=== PATIENT | female | born 1955 | race Caucasian/White ===

== ENCOUNTER 2022-05-11 14:46 | Inpatient (IN) | payer MEDICARE, SELFPAY ==
--- NOTE | ~2022-05-11 | CT_ITS ---
EXAMINATION: CT ANGIOGRAM OF THE CHEST WITH AND WITHOUT CONTRAST (CT PULMONARY ANGIOGRAM FOR PE) CLINICAL INFORMATION: Reason for Exam Hypoxia. sob COMPARISON: None TECHNIQUE: Prior to contrast administration, noncontrast localization images were obtained. Subsequently, multidetector volumetric imaging was performed from the thoracic inlet to below the diaphragms following the administration of 65 mL Omnipaque 350 intravenous contrast. No contrast reaction reported Sagittal, coronal, and MIP oblique sagittal reformatted images were obtained on the CT workstation, uploaded to PACS, and reviewed. This CT examination was performed using dose optimization techniques as appropriate, variously including the following: *Automated exposure control *Adjustment of mA and/or kV according to patient size (this includes techniques or standardized protocols for targeted exams where dose is matched to indication/reason for exam; i.e. extremities or head) *Use of iterative reconstruction technique Total exam dose-length product 230 mGy-cm FINDINGS: QUALITY OF STUDY/CONTRAST BOLUS: Satisfactory. PULMONARY ARTERIES: No central or segmental pulmonary emboli. THORACIC AORTA: No aneurysm or dissection. LUNG: Mild centrilobular emphysema. Minimal subsegmental atelectasis in the lingula and medial right middle lobe. No airspace consolidation. Small sub-4 mm left lower lobe calcified granuloma. No suspicious appearing pulmonary nodules. Central airways are clear. Minimal scattered bronchial wall thickening and bronchial secretions bilaterally. No bronchiectasis. PLEURA: No pleural effusion or pneumothorax. MEDIASTINUM: Normal heart size. No pericardial effusion. Three-vessel coronary artery vascular calcifications present. No hilar or mediastinal lymphadenopathy. No evidence of septal bowing or right heart strain. CHEST WALL/AXILLA: No axillary or internal mammary lymphadenopathy. OSSEOUS STRUCTURES: No acute or suspicious osseous abnormality. Mild multilevel thoracic spondylosis and facet arthrosis. UPPER ABDOMEN: Unremarkable. No reflux of contrast into the hepatic veins to suggest elevated right heart pressures. CT/CT angio chest PE protocol IMPRESSION: 1. No evidence of pulmonary embolus. 2. No airspace consolidation or effusions. 3. Mild centrilobular emphysema and mild diffuse bronchial wall thickening and scattered endobronchial secretions consistent with bronchitis. VTE: negative
--- NOTE | ~2022-05-11 | XR_ITS ---
EXAMINATION: XR CHEST CLINICAL INFORMATION: Shortness of breath COMPARISON: None TECHNIQUE: Frontal view of the chest was obtained. FINDINGS: The cardiac and mediastinal contours are normal. There is question of bronchial wall thickening at the right lung base. The lungs are otherwise clear. No pleural effusion or pneumothorax. Normal bony structures. XR/XR chest 1V IMPRESSION: Question bronchial wall thickening of the right lung base.
[2022-05-11 14:57] VITALS: BP 173/112; BP 201/113; PULSE 89; PULSE 92; RESP 21; TEMP 36.6; O2SAT 96; BMI 27.3
--- NOTE | 2022-05-11 15:04 | ED.SOB ---
HPI - SOB/Dyspnea General Chief Complaint: Dyspnea <NISHA Elias - Last Filed: 05/11/22 18:40> Stated Complaint: SOB worse x1week from urgent care per EMS <NISHA Elias - Last Filed: 05/11/22 18:40> Time Seen by Provider: 05/11/22 15:03 <NISHA Elias - Last Filed: 05/11/22 18:40> Source: patient and EMS <NISHA Elias - Last Filed: 05/11/22 18:40> Mode of arrival: EMS <NISHA Elias Last Filed: 05/11/22 18:40> History of Present Illness HPI Narrative: 67-year-old female with a past medical history of asthma, COPD, hypertension, presenting to the ED via EMS from [facility] c/o SOB x1 week with productive cough. Noted hypoxia 77% on RA [employer], improved to 96% on 4 L NC. Was given 125 mg of Solu-Medrol by EMS. Has been using inhalers at home without relief. Denies fever, chills, chest pain, pedal edema, calf pain, recent travel, sick contacts. <NISHA Elias - Last Filed: 05/11/22 18:40> MD elicited complaint: shortness of breath and cough <NISHA Elias - Last Filed: 05/11/22 18:40> Pertinent past history: COPD and asthma <NISHA Elias - Last Filed: 05/11/22 18:40> Onset (ago): day(s) <NISHA Elias Last Filed: 05/11/22 18:40> Related Data Allergies/Adverse Reactions: Allergies Allergy/AdvReac Type Severity Reaction Status Date / Time No Known Allergies Allergy Verified 05/11/22 15:11 <NISHA Elias - Last Filed: 05/11/22 18:40> Review of Systems Review of Systems: Constitutional: No Fever, No Chills, No Fatigue, No Malaise ENT/Mouth: No Ear Pain, No Nasal Congestion, No Sinus Pain, No Hoarseness, No sore throat, No Rhinorrhea, No Swallowing Difficulty Eyes: No Eye Pain, No Swelling, No Redness, No Vision Changes Cardiovascular: No Chest Pain, + SOB, + Dyspnea on Exertion, No Orthopnea, No Edema, No Palpitations Respiratory: + Cough, + Sputum, + Wheezing, No Dyspnea Gastrointestinal: No Nausea, No Vomiting, No Diarrhea, No Constipation, No Abdominal pain Genitourinary: No Dysuria, No Urinary Frequency, No Hematuria, No Flank Pain Musculoskeletal: No joint pain, No Myalgias, No Joint Swelling Skin: No Skin Lesions, No rash Neuro: No Weakness, No Loss of Consciousness, No Dizziness, No Headache <NISHA Elias - Last Filed: 05/11/22 18:40> Yes all other systems are reviewed and are negative <NISHA Elias - Last Filed: 05/11/22 18:40> Constitutional: Constitutional: Reports as per HPI <NISHA Elias - Last Filed: 05/11/22 18:40> [facility] Past Medical History Attestation statement: The following information was validated with the patient. <NISHA Elias - Last Filed: 05/11/22 18:40> Social History Social History: Social History Advance Directives: No Advance Directives Information Provided: No <NISHA Elias Last Filed: 05/11/22 18:40> Physical Exam Vital Signs: Vital Signs: Last Vital Signs Temp 97.9 F 05/11/22 14:57 Pulse 100 05/11/22 18:48 Resp 18 05/11/22 18:48 BP 173/112 H 05/11/22 14:57 Pulse Ox 96 05/11/22 14:57 O2 Del Method 05/11/22 14:57 Oxygen Flow Rate 4 05/11/22 14:57 BMI result Body Mass Index 27.3 <NISHA Elias - Last Filed: 05/11/22 18:40> Vital Signs: Last Vital Signs Temp 97.9 F 05/11/22 14:57 Pulse 100 05/11/22 18:48 Resp 18 05/11/22 18:48 BP 173/112 H 05/11/22 14:57 Pulse Ox 96 05/11/22 14:57 O2 Del Method 05/11/22 14:57 Oxygen Flow Rate 4 05/11/22 14:57 BMI result Body Mass Index 27.3 <Leda Alexandre MI - Last Filed: 05/11/22 19:36> Const: General: cooperative, healthy appearing and no acute distress <Janis Dawson MI - Last Filed: 05/11/22 18:40> Orientation/consciousness: patient oriented x3 <Janis Dawson MI - Last Filed: 05/11/22 18:40> Limitations: no limitations <NISHA Elias Last Filed: 05/11/22 18:40> HEENT: Head: Yes normal to inspection and Yes atraumatic <NISHA Elias - Last Filed: 05/11/22 18:40> Ears: hearing grossly normal bilaterally <Janis Dawson MI - Last Filed: 05/11/22 18:40> General nose exam: Normal external nose present <NISHA Elias - Last Filed: 05/11/22 18:40> Face and sinus: Yes normal facial exam <NISHA Elias - Last Filed: 05/11/22 18:40> Eyes: General: appearance normal, both eyes and all related structures <NISHA Elias - Last Filed: 05/11/22 18:40> EOM: EOMs intact bilaterally <Janis Dawson MI - Last Filed: 05/11/22 18:40> Neck: Neck: Yes normal visual inspection and Yes no meningeal signs <NISHA Elias - Last Filed: 05/11/22 18:40> Resp: Effort & Inspection: normal respiratory effort and no respiratory distress <NISHA Elias Last Filed: 05/11/22 18:40> Auscultation: clear to auscultation bilaterally and wheezes expiratory wheezes, inspiratory wheezes and throughout <NISHA Elias - Last Filed: 05/11/22 18:40> Cardio: Rate: regular rate <NISHA Elias - Last Filed: 05/11/22 18:40> Heart sounds: S1 normal heart sound present and S2 normal heart sound present <NISHA Elias - Last Filed: 05/11/22 18:40> GI: Inspection: Yes normal to inspection <NISHA Elias Last Filed: 05/11/22 18:40> Palpation (GI): Soft to palpation, nontender, no guarding and not rigid <NISHA Elias Last Filed: 05/11/22 18:40> Skin: Rashes: no rashes <NISHA Elias Last Filed: 05/11/22 18:40> Wounds: no wounds <NISHA Elias Last Filed: 05/11/22 18:40> Neuro: General: patient oriented x3, tone normal and no meningeal signs <NISHA Elias Last Filed: 05/11/22 18:40> Gait exam (Neuro): Normal gait present <NISHA Elias Last Filed: 05/11/22 18:40> Extrem: General: Yes normal to inspection, Yes no pedal edema and Yes no calf tenderness <NISHA Elias Last Filed: 05/11/22 18:40> Course Course Course Narrative: -patient desatting into the 80s on room air > will obtain CTA to rule out PE XR chest 1V IMPRESSION: Question bronchial wall thickening of the right lung base. ? -no leukocytosis. Troponin negative. BNP wnl -patient on OxyMask satting 92%. COVID-19/influenza/RSV negative -1835--ED care transfer to [facility] pending CTA and admission <NISHA Elias Last Filed: 05/11/22 18:40> Reevaluation(s) Reevaluation #1: CTA with no signs of PE. Will be admitted to the hospital for further intervention and treatment. <NISHA Hawk Last Filed: 05/11/22 19:36> Time: 19:36 <NISHA Hawk Last Filed: 05/11/22 19:36> Medications Administered Discontinued Medications Generic Name Dose Route Start Last Admin Trade Name Freq PRN Reason Stop Dose Admin Albuterol Sulfate 5 mg 05/11/22 15:11 05/11/22 15:21 Albuterol Sulfate 2.5 Mg/0.5 Ml Vial.Neb INHALE 05/11/22 15:12 5 mg ONCE ONE Administration Albuterol Sulfate 5 mg/ 7.5 mg 05/11/22 15:51 05/11/22 15:58 Albuterol Sulfate 2.5 mg INHALE 05/11/22 15:52 7.5 mg ONCE ONE Administration Albuterol Sulfate 7.5 mg/ 10 mg 05/11/22 18:32 05/11/22 18:44 Albuterol Sulfate 2.5 mg INHALE 05/11/22 18:33 10 mg ONCE ONE Administration Albuterol/Ipratropium 3 ml 05/11/22 15:11 05/11/22 15:21 Albuterol/Iprat 2.5/0.5mg 3 Ml Ampul.Neb INHALE 05/11/22 15:12 3 ml ONCE ONE Administration Albuterol/Ipratropium 3 ml 05/11/22 15:51 05/11/22 15:57 Albuterol/Iprat 2.5/0.5mg 3 Ml Ampul.Neb INHALE 05/11/22 15:52 3 ml ONCE ONE Administration Benzonatate 100 mg 05/11/22 15:37 05/11/22 16:40 Benzonatate 100 Mg Capsule PO 05/11/22 15:38 100 mg ONCE ONE Administration Hydrocodone Bit/Homatropine Methylb 5 ml 05/11/22 15:37 05/11/22 16:40 Hydrocodone/Homat 5/1.5/5 Ml 5 Ml Syrup PO 05/11/22 15:38 5 ml ONCE ONE Administration Magnesium Sulfate 2 gm in 50 mls @ 25 mls/hr 05/11/22 15:11 05/11/22 19:34 Magnesium Sulfate/H2o IV 05/11/22 17:10 Infused ONCE ONE Infusion Iohexol 65 ml 05/11/22 17:49 05/11/22 17:49 Iohexol 350 Mg/Ml 100 Ml Infus..Btl IV 05/11/22 17:50 65 ml ONCE ONE Administration <NISHA Elias - Last Filed: 05/11/22 18:40> Medications Administered Discontinued Medications Generic Name Dose Route Start Last Admin Trade Name Freq PRN Reason Stop Dose Admin Albuterol Sulfate 5 mg 05/11/22 15:11 05/11/22 15:21 Albuterol Sulfate 2.5 Mg/0.5 Ml Vial.Neb INHALE 05/11/22 15:12 5 mg ONCE ONE Administration Albuterol Sulfate 5 mg/ 7.5 mg 05/11/22 15:51 05/11/22 15:58 Albuterol Sulfate 2.5 mg INHALE 05/11/22 15:52 7.5 mg ONCE ONE Administration Albuterol Sulfate 7.5 mg/ 10 mg 05/11/22 18:32 05/11/22 18:44 Albuterol Sulfate 2.5 mg INHALE 05/11/22 18:33 10 mg ONCE ONE Administration Albuterol/Ipratropium 3 ml 05/11/22 15:11 05/11/22 15:21 Albuterol/Iprat 2.5/0.5mg 3 Ml Ampul.Neb INHALE 05/11/22 15:12 3 ml ONCE ONE Administration Albuterol/Ipratropium 3 ml 05/11/22 15:51 05/11/22 15:57 Albuterol/Iprat 2.5/0.5mg 3 Ml Ampul.Neb INHALE 05/11/22 15:52 3 ml ONCE ONE Administration Benzonatate 100 mg 05/11/22 15:37 05/11/22 16:40 Benzonatate 100 Mg Capsule PO 05/11/22 15:38 100 mg ONCE ONE Administration Hydrocodone Bit/Homatropine Methylb 5 ml 05/11/22 15:37 05/11/22 16:40 Hydrocodone/Homat 5/1.5/5 Ml 5 Ml Syrup PO 05/11/22 15:38 5 ml ONCE ONE Administration Magnesium Sulfate 2 gm in 50 mls @ 25 mls/hr 05/11/22 15:11 05/11/22 19:34 Magnesium Sulfate/H2o IV 05/11/22 17:10 Infused ONCE ONE Infusion Iohexol 65 ml 05/11/22 17:49 05/11/22 17:49 Iohexol 350 Mg/Ml 100 Ml Infus..Btl IV 05/11/22 17:50 65 ml ONCE ONE Administration <NISHA Hawk - Last Filed: 05/11/22 19:36> Medical Decision Making Medical Decision Making MDM Narrative: 67-year-old female with a past medical history of asthma, COPD, hypertension, presenting to the ED via EMS from [facility] c/o SOB x1 week with productive cough. Noted hypoxia at Urgent Care [employer], was given 125 mg of Solu-Medrol by EMS. On exam hypertensive, hypoxic to 90% on RA, improved to 96% on 4 L NC, diffuse inspiratory and expiratory wheezes noted, no facial pedal edema. Course cough noted. Concern for asthma/COPD exacerbation vs viral syndrome vs pneumonia. Lower suspicion for PE/DVT or CHF Plan: Labs, CXR, COVID-19/influenza/RSV testing, IV magnesium, DuoNebs, re-evaluate, admission <NISHA Elias - Last Filed: 05/11/22 18:40> Differential Diagnosis Differential Diagnoses: The differential diagnosis associated with the presentation includes <NISHA Elias - Last Filed: 05/11/22 18:40> as above <NISHA Elias - Last Filed: 05/11/22 18:40> Admission/Observation Consideration of admission/observation: Escalation of care including admission/observation considered <NISHA Elias - Last Filed: 05/11/22 18:40> Consult Healthcare Provider Management of the patient was discussed with: Hospitalist <NISHA Elias - Last Filed: 05/11/22 18:40> Lab Data MDM Lab Attestation statement: I reviewed the patient's lab results. <NISHA Elias - Last Filed: 05/11/22 18:40> Result Diagrams: : 05/11/22 16:36 05/11/22 16:36 <NISHA Elias - Last Filed: 05/11/22 18:40> Labs: Lab Results 05/11/22 05/11/22 05/11/22 Range/Units 16:36 16:36 16:36 WBC 7.0 (4.8-10.8) X10*3/uL RBC 4.12 L (4.20-5.50) X10*6/uL Hgb 13.8 (12.0-16.0) g/dl Hct 41.0 (37.0-47.0) % MCV 99.5 H (80.0-98.0) fL MCH 33.5 H (27.0-33.0) pg MCHC 33.7 (31.0-35.0) g/dl RDW 13.9 (11.0-16.0) % Plt Count 191 (160-400) X10*3/uL MPV 9.3 L (9.4-12.3) fL Immature Gran % (Auto) 0.3 (0.0-0.4) % Neut % (Auto) 81.8 H (45-73) % Lymph % (Auto) 11.2 L (20-40) % [place] % (Auto) 2.0 (2-11) % Eos % (Auto) 3.1 (0-4) % Baso % (Auto) 1.6 (0-2) % Lymph # (Auto) 0.8 L (1.2-4.9) X10*3/uL [place] # (Auto) 0.1 (0.1-1.2) X10*3/uL Eos # (Auto) 0.2 (0.0-0.4) X10*3/uL Baso # (Auto) 0.1 (0.0-0.2) X10*3/uL Abs Immat Gran (auto) 0.02 (0.00-0.03) X10*3/uL Absolute Neuts (auto) 5.8 (2.0-8.3) x10*3/uL Absolute Nucleated RBC 0.000 (0.0-0.012) X10*3/uL Nucleated RBC % (auto) 0.0 (0.0-0.2) /100WBC Sodium 132 L (135-145) mmol/L Potassium 4.8 (3.3-5.1) mmol/L Chloride 94 L (96-108) mmol/L Carbon Dioxide 28 (22-29) mmol/L Anion Gap 15 (12-20) BUN 8 L (9-16) mg/dL Creatinine 0.77 (0.5-1.4) mg/dL Estim Creat Clear Calc 60.7 Estimated GFR > 60 Random Glucose 122 H (60-115) mg/dL Calcium 10.1 (8.4-10.2) mg/dL Magnesium 1.7 (1.6-2.6) mg/dL Total Bilirubin 1.0 (0.0-1.0) mg/dL Direct Bilirubin 0.3 (0.0-0.5) mg/dL AST 23 (5-31) U/L ALT 24 (0-31) U/L Alkaline Phosphatase 123 H (39-117) U/L Troponin I High Sens (<3.5-17.0) ng/L B-Natriuretic Peptide (<100) pg/mL Total Protein 7.4 (6.5-8.0) g/dL Albumin 4.5 (3.5-5.0) g/dL Influenza Type A (PCR) NEGATIVE (Negative) Influenza Type B (PCR) NEGATIVE (Negative) RSV RNA Qual (PCR) NEGATIVE (Negative) SARS-CoV-2 RNA (RT-PCR) NEGATIVE (Negative) 05/11/22 05/11/22 Range/Units 16:37 16:37 WBC (4.8-10.8) X10*3/uL RBC (4.20-5.50) X10*6/uL Hgb (12.0-16.0) g/dl Hct (37.0-47.0) % MCV (80.0-98.0) fL MCH (27.0-33.0) pg MCHC (31.0-35.0) g/dl RDW (11.0-16.0) % Plt Count (160-400) X10*3/uL MPV (9.4-12.3) fL Immature Gran % (Auto) (0.0-0.4) % Neut % (Auto) (45-73) % Lymph % (Auto) (20-40) % [place] % (Auto) (2-11) % Eos % (Auto) (0-4) % Baso % (Auto) (0-2) % Lymph # (Auto) (1.2-4.9) X10*3/uL [place] # (Auto) (0.1-1.2) X10*3/uL Eos # (Auto) (0.0-0.4) X10*3/uL Baso # (Auto) (0.0-0.2) X10*3/uL Abs Immat Gran (auto) (0.00-0.03) X10*3/uL Absolute Neuts (auto) (2.0-8.3) x10*3/uL Absolute Nucleated RBC (0.0-0.012) X10*3/uL Nucleated RBC % (auto) (0.0-0.2) /100WBC Sodium (135-145) mmol/L Potassium (3.3-5.1) mmol/L Chloride (96-108) mmol/L Carbon Dioxide (22-29) mmol/L Anion Gap (12-20) BUN (9-16) mg/dL Creatinine (0.5-1.4) mg/dL Estim Creat Clear Calc Estimated GFR Random Glucose (60-115) mg/dL Calcium (8.4-10.2) mg/dL Magnesium (1.6-2.6) mg/dL Total Bilirubin (0.0-1.0) mg/dL Direct Bilirubin (0.0-0.5) mg/dL AST (5-31) U/L ALT (0-31) U/L Alkaline Phosphatase (39-117) U/L Troponin I High Sens < 3.5 (<3.5-17.0) ng/L B-Natriuretic Peptide 87 (<100) pg/mL Total Protein (6.5-8.0) g/dL Albumin (3.5-5.0) g/dL Influenza Type A (PCR) (Negative) Influenza Type B (PCR) (Negative) RSV RNA Qual (PCR) (Negative) SARS-CoV-2 RNA (RT-PCR) (Negative) <NISHA Elias - Last Filed: 05/11/22 18:40> Lab Results 05/11/22 05/11/22 05/11/22 Range/Units 16:36 16:36 16:36 WBC 7.0 (4.8-10.8) X10*3/uL RBC 4.12 L (4.20-5.50) X10*6/uL Hgb 13.8 (12.0-16.0) g/dl Hct 41.0 (37.0-47.0) % MCV 99.5 H (80.0-98.0) fL MCH 33.5 H (27.0-33.0) pg MCHC 33.7 (31.0-35.0) g/dl RDW 13.9 (11.0-16.0) % Plt Count 191 (160-400) X10*3/uL MPV 9.3 L (9.4-12.3) fL Immature Gran % (Auto) 0.3 (0.0-0.4) % Neut % (Auto) 81.8 H (45-73) % Lymph % (Auto) 11.2 L (20-40) % [place] % (Auto) 2.0 (2-11) % Eos % (Auto) 3.1 (0-4) % Baso % (Auto) 1.6 (0-2) % Lymph # (Auto) 0.8 L (1.2-4.9) X10*3/uL [place] # (Auto) 0.1 (0.1-1.2) X10*3/uL Eos # (Auto) 0.2 (0.0-0.4) X10*3/uL Baso # (Auto) 0.1 (0.0-0.2) X10*3/uL Abs Immat Gran (auto) 0.02 (0.00-0.03) X10*3/uL Absolute Neuts (auto) 5.8 (2.0-8.3) x10*3/uL Absolute Nucleated RBC 0.000 (0.0-0.012) X10*3/uL Nucleated RBC % (auto) 0.0 (0.0-0.2) /100WBC Sodium 132 L (135-145) mmol/L Potassium 4.8 (3.3-5.1) mmol/L Chloride 94 L (96-108) mmol/L Carbon Dioxide 28 (22-29) mmol/L Anion Gap 15 (12-20) BUN 8 L (9-16) mg/dL Creatinine 0.77 (0.5-1.4) mg/dL Estim Creat Clear Calc 60.7 Estimated GFR > 60 Random Glucose 122 H (60-115) mg/dL Calcium 10.1 (8.4-10.2) mg/dL Magnesium 1.7 (1.6-2.6) mg/dL Total Bilirubin 1.0 (0.0-1.0) mg/dL Direct Bilirubin 0.3 (0.0-0.5) mg/dL AST 23 (5-31) U/L ALT 24 (0-31) U/L Alkaline Phosphatase 123 H (39-117) U/L Troponin I High Sens (<3.5-17.0) ng/L B-Natriuretic Peptide (<100) pg/mL Total Protein 7.4 (6.5-8.0) g/dL Albumin 4.5 (3.5-5.0) g/dL Influenza Type A (PCR) NEGATIVE (Negative) Influenza Type B (PCR) NEGATIVE (Negative) RSV RNA Qual (PCR) NEGATIVE (Negative) SARS-CoV-2 RNA (RT-PCR) NEGATIVE (Negative) 05/11/22 05/11/22 Range/Units 16:37 16:37 WBC (4.8-10.8) X10*3/uL RBC (4.20-5.50) X10*6/uL Hgb (12.0-16.0) g/dl Hct (37.0-47.0) % MCV (80.0-98.0) fL MCH (27.0-33.0) pg MCHC (31.0-35.0) g/dl RDW (11.0-16.0) % Plt Count (160-400) X10*3/uL MPV (9.4-12.3) fL Immature Gran % (Auto) (0.0-0.4) % Neut % (Auto) (45-73) % Lymph % (Auto) (20-40) % [place] % (Auto) (2-11) % Eos % (Auto) (0-4) % Baso % (Auto) (0-2) % Lymph # (Auto) (1.2-4.9) X10*3/uL [place] # (Auto) (0.1-1.2) X10*3/uL Eos # (Auto) (0.0-0.4) X10*3/uL Baso # (Auto) (0.0-0.2) X10*3/uL Abs Immat Gran (auto) (0.00-0.03) X10*3/uL Absolute Neuts (auto) (2.0-8.3) x10*3/uL Absolute Nucleated RBC (0.0-0.012) X10*3/uL Nucleated RBC % (auto) (0.0-0.2) /100WBC Sodium (135-145) mmol/L Potassium (3.3-5.1) mmol/L Chloride (96-108) mmol/L Carbon Dioxide (22-29) mmol/L Anion Gap (12-20) BUN (9-16) mg/dL Creatinine (0.5-1.4) mg/dL Estim Creat Clear Calc Estimated GFR Random Glucose (60-115) mg/dL Calcium (8.4-10.2) mg/dL Magnesium (1.6-2.6) mg/dL Total Bilirubin (0.0-1.0) mg/dL Direct Bilirubin (0.0-0.5) mg/dL AST (5-31) U/L ALT (0-31) U/L Alkaline Phosphatase (39-117) U/L Troponin I High Sens < 3.5 (<3.5-17.0) ng/L B-Natriuretic Peptide 87 (<100) pg/mL Total Protein (6.5-8.0) g/dL Albumin (3.5-5.0) g/dL Influenza Type A (PCR) (Negative) Influenza Type B (PCR) (Negative) RSV RNA Qual (PCR) (Negative) SARS-CoV-2 RNA (RT-PCR) (Negative) <NISHA Hawk - Last Filed: 05/11/22 19:36> Independent Interpretation I performed an independent interpretation of an: EKG <NISHA Elias - Last Filed: 05/11/22 18:40> Interpretation: My interpretation EKG normal sinus rhythm at a rate of 91. QRS 78. QTC 462. No STEMI. <NISHA Elias Last Filed: 05/11/22 18:40> Radiology Impression Discussion of test interpretation with radiology: I have reviewed the radiologist's reading. <NISHA Elias Last Filed: 05/11/22 18:40> Critical Care Time Critical Care Time Critical Care Time: Yes <NISHA Elias Last Filed: 05/11/22 18:40> Total Critical Care Time: 45 <NISHA Elias Last Filed: 05/11/22 18:40> Attestation: I have personally provided critical care time exclusive of time spent on separately billable procedures. Time includes review of lab data, radiology results, discussion with consultants, and monitoring for potential decompensation. Intervention performed as documented. <NISHA Elias - Last Filed: 05/11/22 18:40> Discharge Plan Discharge Clinical Impression: Asthma with exacerbation, Acute exacerbation of chronic obstructive airways disease <NISHA Elias - Last Filed: 05/11/22 18:40> Patient Disposition: Admitted As Inpatient <NISHA Elias - Last Filed: 05/11/22 18:40>
--- NOTE | 2022-05-11 15:11 | ECG_ITS ---
Test Reason : SOB Blood Pressure : / mmHG Vent. Rate : 091 BPM Atrial Rate : 091 BPM P-R Int : 138 ms QRS Dur : 078 ms QT Int : 376 ms P-R-T Axes : 060 063 057 degrees QTc Int : 462 ms Normal sinus rhythm Normal ECG No previous ECGs available Referred By: Janis Dawson Electronically Signed By:ANTONIETA PINA MD
[2022-05-11] MEDS: Albuterol Sulfate 2.5 MG/0.5 ML VIAL.NEB 5 MG INHALE (15:21)
[2022-05-11] MEDS: Albuterol/Iprat 2.5/0.5MG 3 ML AMPUL.NEB INHALE ×2 (15:21→15:57)
[2022-05-11 15:22] VITALS: PULSE 91; RESP 20; O2SAT 87
[2022-05-11] MEDS: Albuterol Sulfate 5 MG, Albuterol Sulfate (0.083%) 2.5 MG 7.5 MG INHALE (15:58)
[2022-05-11 15:59] VITALS: PULSE 87; RESP 20; O2SAT 93
[2022-05-11] MEDS: Magnesium Sulfate/H2O 2 GM/50 ML PIGGYBACK IV (16:40)
[2022-05-11] MEDS: HYDROcodone/Homat 5/1.5/5 ML 5 ML SYRUP PO (16:40)
[2022-05-11] MEDS: Benzonatate 100 MG CAPSULE PO (16:40)
[2022-05-11 16:43] LABS: MANUAL DIFF FLAG NO
[2022-05-11 16:44] LABS: Lymphocytes Absolute Auto 0.8 X10*3/uL (1.2-4.9); Mean Corpuscular HGB Conc 33.7 g/dl (31.0-35.0); PLT CLUMP 1; SCAN SMEAR FLAG 1
[2022-05-11 16:46] LABS: Basophils Absolute Auto 0.1 X10*3/uL (0.0-0.2); Basophils Percent Auto 1.6 % (0-2); Eosinophils Absolute Auto 0.2 X10*3/uL (0.0-0.4); Eosinophils Percent Auto 3.1 % (0-4); Hemoglobin 13.8 g/dl (12.0-16.0); Imm Gran Abs Auto 0.02 X10*3/uL (0.00-0.03); Imm Gran Pct Auto 0.3 % (0.0-0.4); Lymphocytes Percent Auto 11.2 % (20-40); Mean Corpuscular Hemoglobin 33.5 pg (27.0-33.0); Mean Corpuscular Volume 99.5 fL (80.0-98.0); Mean Platelet Volume 9.3 fL (9.4-12.3); Monocytes Absolute Auto 0.1 X10*3/uL (0.1-1.2); Neutrophils Absolute Auto 5.8 x10*3/uL (2.0-8.3); Neutrophils Percent Auto 81.8 % (45-73); Red Blood Count 4.12 X10*6/uL (4.20-5.50); Red Cell Distribution Width 13.9 % (11.0-16.0)
[2022-05-11 16:49] LABS: Platelet Count 191 X10*3/uL (160-400)
[2022-05-11 17:05] LABS: Alanine Aminotransferase 24 U/L (0-31); Albumin Level 4.5 g/dL (3.5-5.0); Alkaline Phosphatase 123 U/L (39-117); Anion Gap 15 (12-20); Aspartate Amino Transferase 23 U/L (5-31); Bilirubin Direct 0.3 mg/dL (0.0-0.5); Blood Urea Nitrogen 8 mg/dL (9-16); Calcium 10.1 mg/dL (8.4-10.2); Carbon Dioxide 28 mmol/L (22-29); Chloride 94 mmol/L (96-108); Creatinine Clr Calc Pharmacy 60.7; Estimated Glomerular Filt Rate > 60; Glucose Random 122 mg/dL (60-115); Magnesium 1.7 mg/dL (1.6-2.6); Potassium 4.8 mmol/L (3.3-5.1); Sodium 132 mmol/L (135-145); Total Protein 7.4 g/dL (6.5-8.0)
[2022-05-11 17:09] LABS: B Type Natriuretic Peptide 87 pg/mL (<100)
[2022-05-11 17:11] LABS: Troponin-I High Sensitivity < 3.5 ng/L (<3.5-17.0)
[2022-05-11 17:22] LABS: Influenza A PCR NEGATIVE (Negative); Influenza B PCR NEGATIVE (Negative); Resp Syncy Virus RNA Qual PCR NEGATIVE (Negative); SARS COV2 PCR INHOUSE NEGATIVE (Negative)
[2022-05-11] MEDS: iohexoL 350 MG/ML 100 ML INFUS..BTL 65 ML IV (17:49)
[2022-05-11] MEDS: Albuterol Sulfate 7.5 MG, Albuterol Sulfate (0.083%) 2.5 MG 10 MG INHALE (18:44)
[2022-05-11 18:48] VITALS: PULSE 100; RESP 18; O2SAT 93
--- NOTE | 2022-05-11 19:52 | PC.NURSE ---
Resumed car of the pt at 1900. Pt is A&Ox4, GCS 15, resting comfortably in bed. She was having occasional episodes of coughing. Pt requested food, she was given a sandwich and a glass of water. Hospitalist is at the bedside at this time.
[2022-05-11 20:03] VITALS: BP 151/79; PULSE 107; RESP 20; O2SAT 94
[2022-05-11] MEDS: Azithromycin 500 MG TABLET PO (21:50)
[2022-05-11] MEDS: Enoxaparin Sodium 40 MG/0.4 ML SYRINGE SUBCUT (21:51)
[2022-05-11] MEDS: methylPREDNISolone Sod Succ 40 MG/ML VIAL IVPUSH (21:51)
[2022-05-11 22:26] VITALS: BP 156/61; PULSE 97; RESP 21; TEMP 36.6; O2SAT 96
[2022-05-11] MEDS: Losartan Potassium 50 MG TABLET 100 MG PO (22:40)
--- NOTE | 2022-05-11 23:04 | MHC.CM.PN ---
IMM 05/11. Lives w . Independent. Employed. Drives. Prizer x2. No booster. No services/DME. HCP reviewed, completed and signed. Copies given and uploaded into [facility] and [facility] [employer]. HCP/daughter Kenzie Marrero ([phone]). Pt has standard medicare. Has new insurance starting May 15-[facility] Medicare Advantage. PCP Graeme Kathleen. D/C plan: Home without services. Pt to arrange transport. CM to follow for discharge needs.
--- NOTE | 2022-05-11 23:19 | P.HPHOSP_ITS ---
History of Present Illness Date of Service: 05/11/22 Chief Complaint: SOB 67-year-old female with past medical history of asthma COPD overlap syndrome, hypertension, presented to the ED with complaints of shortness of breath, wheezing, cough, and increased sputum production for the past 1 week. Patient presented to [facility] is compressed found to be 76% on room air, patient placed on oxygen with improvement of her symptoms. Patient reports that she has had recurrent COPD exacerbations since December, reports no chest pain, no palpitations, no abdominal pain nausea or vomiting, no diarrhea constipation, no urinary symptoms and no lower extremity edema. on arrival to the ED patient hemodynamically stable with a respiratory rate of 22, satting 96% on 4 L of oxygen. Labs are significant for sodium of 132, BNP of 87, troponin less than 3.5, viral serology negative Chest CT angiogram shows no PE, no airspace consolidation or effusion. Mild emphysema and diffuse bronchial wall thickening and scattered and a brachial secretion consistent with bronchitis Review of Systems Review of Systems: Yes all other systems are reviewed and are negative [facility] Medical History Asthma-COPD overlap syndrome Hypertension Family History Other No family history of coronary artery disease Surgical History No pertinent past surgical history Social History Household Members: Spouse Housing: Other Housing Other:: housing Do you presently have visiting nurse or other home services: No Patient Tobacco Use Status: Current someday Tobacco user Tobacco use type: Cigarette Cigarettes Per Day: 10 Smoked in Last 30 Days: Yes Patient Interested in Nicotine Replacement: No Patient Given Instructions on How to Stop Smoking: No Second Hand Smoke Exposure: No Use of substances other than those prescribed or required for medical reasons: No Have you been hit, kicked, punched, or otherwise hurt by someone within the past year? If so, by whom?: No Do you feel safe in your current relationship?: Yes Is there a partner from a previous relationship who is making you feel unsafe now?: No Are you made to feel afraid or neglected: No Advance Directives: No Advance Directives Information Provided: No Do you have thoughts of harming others: None Do you have a plan to hurt others: No Plan Recently lost weight without trying: No How much weight loss: Not applicable Eating poorly because of decreased appetite: No Nutrition screen score: 0 Nutrition Risks: No Nutritional Risk Patient : No : No Poor oral hygiene: No service: No Current occupational status: employed Meds Allergies Allergy/AdvReac Type Severity Reaction Status Date / Time No Known Allergies Allergy Verified 05/11/22 15:11 Active Medications: Current Medications Acetaminophen (Acetaminophen 325 Mg Tablet) 650 mg PO Q6H PRN PRN Reason: Pain, Mild (Pain Scale 1-3) Albuterol/Ipratropium (Albuterol/Iprat 2.5/0.5mg 3 Ml Ampul.Neb) 3 ml INHALE RQ4H PRN PRN Reason: Shortness of Breath/Wheezing Albuterol/Ipratropium (Albuterol/Iprat 2.5/0.5mg 3 Ml Ampul.Neb) 3 ml INHALE RQ4H WHILE AWAKE [facility] Azithromycin (Azithromycin 500 Mg Tablet) 500 mg PO Q24H [facility] Last Admin: 05/11/22 21:50 Dose: 500 mg Docusate Sodium (Docusate Sodium 100 Mg Capsule) 100 mg PO DAILY PRN PRN Reason: Constipation Enoxaparin Sodium (Enoxaparin Sodium 40 Mg/0.4 Ml Syringe) 40 mg SUBCUT Q24H [facility] Last Admin: 05/11/22 21:51 Dose: 40 mg Losartan Potassium (Losartan Potassium 50 Mg Tablet) 100 mg PO BEDTIME [facility]; Protocol Last Admin: 05/11/22 22:40 Dose: 100 mg Methylprednisolone Sodium Succinate (Methylprednisolone Sod Succ 40 Mg/Ml Vial) 40 mg IVPUSH Q12H [facility] Last Admin: 05/11/22 21:51 Dose: 40 mg Ondansetron HCl (Ondansetron Hcl 4 Mg/2 Ml Vial) 4 mg IVPUSH Q8H PRN PRN Reason: Nausea and Vomiting Pharmacy Consult (Consult Rx Perform Med Rec) 1 each MISCELLANE ONCE PRN PRN Reason: Consult order Sodium Chloride (0.9 % Sodium Chloride Flush 3 Ml Syringe) 3 ml IVFLUSH QSHIFT [facility] Home Medications Medication Instructions Recorded Confirmed Last Taken Type albuterol sulfate 90 mcg/actuation 2 puff inhalation Q4H PRN dyspnea 05/11/22 05/11/22 05/11/22 History aerosol inhaler losartan 100 mg tablet 1 tab PO BEDTIME 05/11/22 05/11/22 05/10/22 History Physical Exam Vital Signs and Narrative: Vital Signs: Last Vital Signs Temp 98 F 05/11/22 22:26 Pulse 97 05/11/22 22:26 Resp 21 H 05/11/22 22:26 BP 156/61 H 05/11/22 22:26 Pulse Ox 96 05/11/22 22:26 O2 Del Method 05/11/22 22:26 Oxygen Flow Rate 4 05/11/22 14:57 BMI result Body Mass Index 27.3 Const: General: cooperative and no acute distress Orientation/consciousness: patient oriented x3 Eyes: General: appearance normal, both eyes and all related structures Pupils: Equal, round and reactive pupils present Resp: Other: audible wheezing diminished breath sounds Effort & Inspection: normal respiratory effort Cardio: Rate: regular rate Rhythm: regular rhythm GI: Palpation (GI): Soft to palpation Auscultation: normal bowel sounds Skin: General skin exam: no rashes or lesions noted Neuro: General: patient oriented x3 Cranial nerves: Yes Equal, round and reactive pupils present Cognition (Neuro): normal cognition Extrem: General: Yes normal to inspection and Yes no pedal edema Results Labs CBC and Chem 7: 05/11/22 16:36 05/11/22 16:36 Labs: Laboratory Results - last 24 hr 05/11/22 05/11/22 05/11/22 16:36 16:36 16:36 MCV 99.5 H MCH 33.5 H MCHC 33.7 RDW 13.9 Plt Count 191 MPV 9.3 L Immature Gran % (Auto) 0.3 Neut % (Auto) 81.8 H Lymph % (Auto) 11.2 L [place] % (Auto) 2.0 Eos % (Auto) 3.1 Baso % (Auto) 1.6 Lymph # (Auto) 0.8 L [place] # (Auto) 0.1 Eos # (Auto) 0.2 Baso # (Auto) 0.1 Abs Immat Gran (auto) 0.02 Absolute Neuts (auto) 5.8 Absolute Nucleated RBC 0.000 Nucleated RBC % (auto) 0.0 Anion Gap 15 Estim Creat Clear Calc 60.7 Estimated GFR > 60 Random Glucose 122 H Calcium 10.1 Magnesium 1.7 Total Bilirubin 1.0 Direct Bilirubin 0.3 AST 23 ALT 24 Alkaline Phosphatase 123 H Troponin I High Sens B-Natriuretic Peptide Total Protein 7.4 Albumin 4.5 Influenza Type A (PCR) NEGATIVE Influenza Type B (PCR) NEGATIVE RSV RNA Qual (PCR) NEGATIVE SARS-CoV-2 RNA (RT-PCR) NEGATIVE 05/11/22 05/11/22 16:37 16:37 MCV MCH MCHC RDW Plt Count MPV Immature Gran % (Auto) Neut % (Auto) Lymph % (Auto) [place] % (Auto) Eos % (Auto) Baso % (Auto) Lymph # (Auto) [place] # (Auto) Eos # (Auto) Baso # (Auto) Abs Immat Gran (auto) Absolute Neuts (auto) Absolute Nucleated RBC Nucleated RBC % (auto) Anion Gap Estim Creat Clear Calc Estimated GFR Random Glucose Calcium Magnesium Total Bilirubin Direct Bilirubin AST ALT Alkaline Phosphatase Troponin I High Sens < 3.5 B-Natriuretic Peptide 87 Total Protein Albumin Influenza Type A (PCR) Influenza Type B (PCR) RSV RNA Qual (PCR) SARS-CoV-2 RNA (RT-PCR) Imaging Radiologist's Impressions: Impressions Chest X-Ray 05/11/22 15:55 IMPRESSION: Question bronchial wall thickening of the right lung base. Chest CTA 05/11/22 17:57 IMPRESSION: 1. No evidence of pulmonary embolus. 2. No airspace consolidation or effusions. 3. Mild centrilobular emphysema and mild diffuse bronchial wall thickening and scattered endobronchial secretions consistent with bronchitis. VTE: negative Assessment and Plan (1) Asthma with COPD with exacerbation: Status: Acute (2) Acute respiratory failure with hypoxia: Status: Acute Plan 67-year-old female with past medical history of COPD asthma overlap syndrome, as well as hypertension presents to the hospital with complaints of shortness of breath found to be hypoxic # acute hypoxic respiratory failure - secondary to COPD exacerbation - viral serology negative - chest x-ray with no pneumonia, chest CT angiogram with no PE - treat with oxygen as required # acute COPD/asthma exacerbation - has cough, increased sputum, as well as increased dyspnea - will treat with DuoNeb, Solu-Medrol - given bronchitis, will add azithromycin - whole cultures # hypertension - elevated - continue home losartan DVT prophylaxis : Lovenox given oxygen requirement patient will require minimum 2 night inpatient hospital stay for further management and monitoring Time Spent With Patient Time: Total time managing care of this patient today ____ minutes. Quality Stroke Does the patient have a stroke diagnosis?: No VTE Prior VTE?: No VTE Risk Level:: Medical - moderate - high VTE Device Contraindication: Treatment Not Indicated VTE Drug Contraindication: N/A - Med Ordered
[2022-05-12] VITALS (9 sets, daily range): BP systolic 133–170; BP diastolic 60–98; PULSE 87–108; RESP 18–22; TEMP 36.6–37; O2SAT 93–96
[2022-05-12] MEDS: 0.9 % Sodium Chloride Flush 3 ML SYRINGE IVFLUSH ×4 (00:23→21:38)
[2022-05-12] MEDS: Benzonatate 100 MG CAPSULE PO (00:29)
[2022-05-12 06:06] LABS: MANUAL DIFF FLAG NO
[2022-05-12 06:37] LABS: Anion Gap 14 (12-20); Blood Urea Nitrogen 15 mg/dL (9-16); Calcium 9.9 mg/dL (8.4-10.2); Carbon Dioxide 26 mmol/L (22-29); Chloride 97 mmol/L (96-108); Creatinine Clr Calc Pharmacy 56.3; Estimated Glomerular Filt Rate > 60; Glucose Random 155 mg/dL (60-115); Potassium 5.3 mmol/L (3.3-5.1); Sodium 132 mmol/L (135-145)
[2022-05-12 06:40] LABS: Basophils Percent Auto 0.2 % (0-2); Eosinophils Percent Auto 0.2 % (0-4); Hematocrit 37.5 % (37.0-47.0); Hemoglobin 12.7 g/dl (12.0-16.0); Imm Gran Pct Auto 1.7 % (0.0-0.4); Lymphocytes Absolute Auto 0.5 X10*3/uL (1.2-4.9); Lymphocytes Percent Auto 8.9 % (20-40); Mean Corpuscular HGB Conc 33.9 g/dl (31.0-35.0); Mean Corpuscular Hemoglobin 33.2 pg (27.0-33.0); Mean Corpuscular Volume 97.9 fL (80.0-98.0); Mean Platelet Volume 9.8 fL (9.4-12.3); Monocytes Absolute Auto 0.1 X10*3/uL (0.1-1.2); Monocytes Percent Auto 1.5 % (2-11); Neutrophils Absolute Auto 5.2 x10*3/uL (2.0-8.3); Neutrophils Percent Auto 87.5 % (45-73); Platelet Count 195 X10*3/uL (160-400); Red Blood Count 3.83 X10*6/uL (4.20-5.50); Red Cell Distribution Width 13.8 % (11.0-16.0)
[2022-05-12] MEDS: Albuterol/Iprat 2.5/0.5MG 3 ML AMPUL.NEB INHALE ×4 (08:48→19:36)
[2022-05-12] MEDS: methylPREDNISolone Sod Succ 40 MG/ML VIAL IVPUSH ×2 (08:55→21:31)
--- NOTE | 2022-05-12 10:26 | HO.PM.IMPN ---
Subjective Subjective Date of Service: 05/12/22 Interval History: Complaining of persistent shortness of breath and cough, denies fever chills, tolerating diet no other acute issues overnight noted to have finger oximetry 76% on room air currently 4 L 96%, difficult to obtain finger of oximetry due to nail [place] Review of Systems General no headache no dizziness no fever chills. CVS no chest pain, no palpitation. Respiratory shortness of breath, cough Gastrointestinal no nausea, no vomiting, no abdominal pain Review of Systems: Yes all other systems are reviewed and are negative Physical Exam Vital Signs: Vital Signs: Last Vital Signs Temp 97.8 F 05/12/22 08:00 Pulse 106 H 05/12/22 08:51 Resp 20 05/12/22 08:51 BP 137/72 05/12/22 08:00 Pulse Ox 93 05/12/22 08:00 O2 Del Method 05/12/22 08:00 O2 Flow Rate 2 05/12/22 08:00 Oxygen Flow Rate 4 05/11/22 14:57 BMI result Body Mass Index 27.3 Const: Other: General awake alert x3, in no acute distress. Neck is supple no JVD. CVS regular rate rhythm, Respiratory lungs diminished breath sounds, bilateral rhonchi, no use of accessory muscle Gastrointestinal abdomen soft, nontender, bowel sounds audible, no guarding , no rigidity. Extremities no clubbing cyanosis or edema. Neuro nonfocal Skin no rash Psych appropriate affect Objective Data Active Medications Acetaminophen (Acetaminophen 325 Mg Tablet) 650 mg PO Q6H PRN PRN Reason: Pain, Mild (Pain Scale 1-3) Albuterol/Ipratropium (Albuterol/Iprat 2.5/0.5mg 3 Ml Ampul.Neb) 3 ml INHALE RQ4H PRN PRN Reason: Shortness of Breath/Wheezing Albuterol/Ipratropium (Albuterol/Iprat 2.5/0.5mg 3 Ml Ampul.Neb) 3 ml INHALE RQ4H WHILE AWAKE ON LICENSE OF [facility] Last Admin: 05/12/22 08:48 Dose: 3 ml Documented By: MACARIO Azithromycin (Azithromycin 500 Mg Tablet) 500 mg PO Q24H [facility] LICENSE OF [facility] Last Admin: 05/11/22 21:50 Dose: 500 mg Documented By: RAY Benzonatate (Benzonatate 100 Mg Capsule) 100 mg PO TID PRN PRN Reason: Cough Last Admin: 05/12/22 00:29 Dose: 100 mg Documented By: PETER Docusate Sodium (Docusate Sodium 100 Mg Capsule) 100 mg PO DAILY PRN PRN Reason: Constipation Enoxaparin Sodium (Enoxaparin Sodium 40 Mg/0.4 Ml Syringe) 40 mg SUBCUT Q24H [facility] Last Admin: 05/11/22 21:51 Dose: 40 mg Documented By: RAY Losartan Potassium (Losartan Potassium 50 Mg Tablet) 100 mg PO BEDTIME ON LICENSE OF [facility]; Protocol Last Admin: 05/11/22 22:40 Dose: 100 mg Documented By: RAY Methylprednisolone Sodium Succinate (Methylprednisolone Sod Succ 40 Mg/Ml Vial) 40 mg IVPUSH Q12H [facility] OF [facility] Last Admin: 05/12/22 08:55 Dose: 40 mg Documented By: ROB Ondansetron HCl (Ondansetron Hcl 4 Mg/2 Ml Vial) 4 mg IVPUSH Q8H PRN PRN Reason: Nausea and Vomiting Pharmacy Consult (Consult Rx Perform Med Rec) 1 each MISCELLANE ONCE PRN PRN Reason: Consult order Sodium Chloride (0.9 % Sodium Chloride Flush 3 Ml Syringe) 3 ml IVFLUSH QSHIFT ON LICENSE OF [facility] Last Admin: 05/12/22 07:09 Dose: 3 ml Documented By: ROB Labs CBC & Chem 7: 05/12/22 05:03 05/12/22 05:03 Labs: Laboratory Results - last 24 hr 05/11/22 05/11/22 05/11/22 16:36 16:36 16:36 MCV 99.5 H MCH 33.5 H MCHC 33.7 RDW 13.9 Plt Count 191 MPV 9.3 L Immature Gran % (Auto) 0.3 Neut % (Auto) 81.8 H Lymph % (Auto) 11.2 L [place] % (Auto) 2.0 Eos % (Auto) 3.1 Baso % (Auto) 1.6 Lymph # (Auto) 0.8 L [place] # (Auto) 0.1 Eos # (Auto) 0.2 Baso # (Auto) 0.1 Abs Immat Gran (auto) 0.02 Absolute Neuts (auto) 5.8 Absolute Nucleated RBC 0.000 Nucleated RBC % (auto) 0.0 Anion Gap 15 Estim Creat Clear Calc 60.7 Estimated GFR > 60 Random Glucose 122 H Calcium 10.1 Magnesium 1.7 Total Bilirubin 1.0 Direct Bilirubin 0.3 AST 23 ALT 24 Alkaline Phosphatase 123 H Troponin I High Sens B-Natriuretic Peptide Total Protein 7.4 Albumin 4.5 Influenza Type A (PCR) NEGATIVE Influenza Type B (PCR) NEGATIVE RSV RNA Qual (PCR) NEGATIVE SARS-CoV-2 RNA (RT-PCR) NEGATIVE 05/11/22 05/11/22 05/12/22 16:37 16:37 05:03 MCV 97.9 MCH 33.2 H MCHC 33.9 RDW 13.8 Plt Count 195 MPV 9.8 Immature Gran % (Auto) 1.7 H Neut % (Auto) 87.5 H Lymph % (Auto) 8.9 L [place] % (Auto) 1.5 L Eos % (Auto) 0.2 Baso % (Auto) 0.2 Lymph # (Auto) 0.5 L [place] # (Auto) 0.1 Eos # (Auto) 0.0 Baso # (Auto) 0.0 Abs Immat Gran (auto) 0.10 H Absolute Neuts (auto) 5.2 Absolute Nucleated RBC 0.000 Nucleated RBC % (auto) 0.0 Anion Gap Estim Creat Clear Calc Estimated GFR Random Glucose Calcium Magnesium Total Bilirubin Direct Bilirubin AST ALT Alkaline Phosphatase Troponin I High Sens < 3.5 B-Natriuretic Peptide 87 Total Protein Albumin Influenza Type A (PCR) Influenza Type B (PCR) RSV RNA Qual (PCR) SARS-CoV-2 RNA (RT-PCR) 05/12/22 05:03 MCV MCH MCHC RDW Plt Count MPV Immature Gran % (Auto) Neut % (Auto) Lymph % (Auto) [place] % (Auto) Eos % (Auto) Baso % (Auto) Lymph # (Auto) [place] # (Auto) Eos # (Auto) Baso # (Auto) Abs Immat Gran (auto) Absolute Neuts (auto) Absolute Nucleated RBC Nucleated RBC % (auto) Anion Gap 14 Estim Creat Clear Calc 56.3 Estimated GFR > 60 Random Glucose 155 H Calcium 9.9 Magnesium Total Bilirubin Direct Bilirubin AST ALT Alkaline Phosphatase Troponin I High Sens B-Natriuretic Peptide Total Protein Albumin Influenza Type A (PCR) Influenza Type B (PCR) RSV RNA Qual (PCR) SARS-CoV-2 RNA (RT-PCR) Assessment and Plan (1) Acute respiratory failure with hypoxia: Status: Acute (2) Asthma with COPD with exacerbation: Status: Acute Plan 67-year-old female with past medical history of COPD asthma overlap syndrome, as well as hypertension presents to the hospital with complaints of shortness of breath found to be hypoxic #? acute hypoxic respiratory failure, secondary to COPD /asthma exacerbation -? viral serology negative -? chest x-ray with no pneumonia showed bronchial wall thickening of right lung base,? chest CT angiogram with no PE Continue scheduled and as needed DuoNeb, IV Solu-Medrol 40 mg b.i.d. -? given bronchitis, continue po azithromycin 500 mg daily day 2, continue as needed cough medication and add scheduled Robitussin -? wean oxygen as tolerated patient not on home oxygen #? hypertension -? elevated blood pressure on arrival to the emergency room, BP improving -? continue home losartan # mild hyponatremia sodium 132 will follow labs # mild hyperkalemia hold treatment follow bmp ?DVT prophylaxis : Lovenox ?given oxygen requirement patient will require continued inpatient hospital stay for further management and monitoring Time Spent With Patient Time: Total time managing care of this patient today ____ minutes. Quality Stroke Does the patient have a stroke diagnosis?: No VTE Prior VTE?: No VTE Risk Level:: Medical - moderate - high VTE Device Contraindication: Treatment Not Indicated VTE Drug Contraindication: N/A - Med Ordered
[2022-05-12] MEDS: guaiFENesin DM 100/10/5 ML 5 ML SYRUP 10 ML PO ×2 (14:14→21:31)
[2022-05-12] MEDS: Enoxaparin Sodium 40 MG/0.4 ML SYRINGE SUBCUT (21:31)
[2022-05-12] MEDS: Azithromycin 500 MG TABLET PO (21:31)
[2022-05-12] MEDS: Losartan Potassium 50 MG TABLET 100 MG PO (21:31)
[2022-05-13] VITALS (8 sets, daily range): BP systolic 138–152; BP diastolic 62–68; PULSE 87–104; RESP 16–20; TEMP 36.6–37.1; O2SAT 92–98
[2022-05-13 06:16] LABS: Anion Gap 11 (12-20); Blood Urea Nitrogen 31 mg/dL (9-16); Calcium 9.4 mg/dL (8.4-10.2); Carbon Dioxide 26 mmol/L (22-29); Chloride 97 mmol/L (96-108); Creatinine Clr Calc Pharmacy 51.9; Estimated Glomerular Filt Rate > 60; Glucose Random 146 mg/dL (60-115); Potassium 5.6 mmol/L (3.3-5.1); Sodium 128 mmol/L (135-145)
[2022-05-13] MEDS: Albuterol/Iprat 2.5/0.5MG 3 ML AMPUL.NEB INHALE ×4 (07:57→20:00)
[2022-05-13] MEDS: Sodium Polystyrene Sulfon/Sorb 15 GM/60 ML ORAL.SUSP 30 GM PO (08:38)
[2022-05-13] MEDS: guaiFENesin DM 100/10/5 ML 5 ML SYRUP 10 ML PO ×3 (08:38→20:05)
[2022-05-13] MEDS: 0.9 % Sodium Chloride Flush 3 ML SYRINGE IVFLUSH ×3 (08:38→20:06)
[2022-05-13] MEDS: methylPREDNISolone Sod Succ 40 MG/ML VIAL IVPUSH ×2 (08:38→20:05)
--- NOTE | 2022-05-13 12:17 | HO.PM.IMPN ---
Subjective Subjective Date of Service: 05/13/22 Interval History: Seen and evaluated this morning Still complaining of dyspnea on exertion and bilateral wheezes Blood work showing hyponatremia and hyperkalemia No other overnight events Review of Systems Review of Systems: Yes all other systems are reviewed and are negative Physical Exam Vital Signs: Vital Signs: Last Vital Signs Temp 98.2 F 05/13/22 08:00 Pulse 87 05/13/22 11:32 Resp 18 05/13/22 11:32 BP 140/65 H 05/13/22 08:00 Pulse Ox 95 05/13/22 08:00 O2 Del Method 05/13/22 08:00 O2 Flow Rate 2 05/13/22 08:00 Oxygen Flow Rate 4 05/11/22 14:57 BMI result Body Mass Index 27.3 Const: Other: General awake alert x3, in no acute distress. Neck is supple no JVD. CVS regular rate rhythm, Respiratory lungs diminished breath sounds, bilateral rhonchi, bilateral wheezes, on oxygen supplement Gastrointestinal abdomen soft, nontender, bowel sounds audible, no guarding , no rigidity. Extremities no clubbing cyanosis or edema. Neuro nonfocal Skin no rash Psych appropriate affect Objective Data Active Medications Acetaminophen (Acetaminophen 325 Mg Tablet) 650 mg PO Q6H PRN PRN Reason: Pain, Mild (Pain Scale 1-3) Albuterol/Ipratropium (Albuterol/Iprat 2.5/0.5mg 3 Ml Ampul.Neb) 3 ml INHALE RQ4H PRN PRN Reason: Shortness of Breath/Wheezing Albuterol/Ipratropium (Albuterol/Iprat 2.5/0.5mg 3 Ml Ampul.Neb) 3 ml INHALE RQ4H WHILE AWAKE [facility] Last Admin: 05/13/22 11:30 Dose: 3 ml Documented By: ANDREW Azithromycin (Azithromycin 500 Mg Tablet) 500 mg PO Q24H [facility] Last Admin: 05/12/22 21:31 Dose: 500 mg Documented By: JOHAN Benzonatate (Benzonatate 100 Mg Capsule) 100 mg PO TID PRN PRN Reason: Cough Last Admin: 05/12/22 00:29 Dose: 100 mg Documented By: PETER Docusate Sodium (Docusate Sodium 100 Mg Capsule) 100 mg PO DAILY PRN PRN Reason: Constipation Enoxaparin Sodium (Enoxaparin Sodium 40 Mg/0.4 Ml Syringe) 40 mg SUBCUT Q24H [facility] Last Admin: 05/12/22 21:31 Dose: 40 mg Documented By: JOHAN Guaifenesin/Dextromethorphan (Guaifenesin Dm 100/10/5 Ml 5 Ml Syrup) 10 ml PO TID [facility] Last Admin: 05/13/22 08:38 Dose: 10 ml Documented By: POPPY Losartan Potassium (Losartan Potassium 50 Mg Tablet) 100 mg PO BEDTIME [facility]; Protocol Last Admin: 05/12/22 21:31 Dose: 100 mg Documented By: JOHAN Methylprednisolone Sodium Succinate (Methylprednisolone Sod Succ 40 Mg/Ml Vial) 40 mg IVPUSH Q12H [facility] Last Admin: 05/13/22 08:38 Dose: 40 mg Documented By: POPPY Ondansetron HCl (Ondansetron Hcl 4 Mg/2 Ml Vial) 4 mg IVPUSH Q8H PRN PRN Reason: Nausea and Vomiting Pharmacy Consult (Consult Rx Perform Med Rec) 1 each MISCELLANE ONCE PRN PRN Reason: Consult order Sodium Chloride (0.9 % Sodium Chloride Flush 3 Ml Syringe) 3 ml IVFLUSH QSHIFT [facility] Last Admin: 05/13/22 08:38 Dose: 3 ml Documented By: POPPY Labs CBC & Chem 7: 05/12/22 05:03 05/13/22 05:15 Labs: Laboratory Results - last 24 hr 05/13/22 05:15 Anion Gap 11 L Estim Creat Clear Calc 51.9 Estimated GFR > 60 Random Glucose 146 H Calcium 9.4 Assessment and Plan (1) Acute respiratory failure with hypoxia: Status: Acute (2) Asthma with COPD with exacerbation: Status: Acute (3) Hyperkalemia: Status: Acute (4) Hyponatremia: Status: Acute Plan 67-year-old female with past medical history of COPD asthma overlap syndrome, as well as hypertension presents to the hospital with complaints of shortness of breath found to be hypoxic #? acute hypoxic respiratory failure, secondary to COPD /asthma exacerbation Improving slowly ? chest CT angiogram with no PE Continue scheduled and as needed DuoNeb IV Solu-Medrol 40 mg b.i.d. continue po azithromycin 500 mg daily day 3 continue as needed cough medication and add scheduled Robitussin wean oxygen as tolerated #? hypertension elevated blood pressure on arrival to the emergency room, BP improving continue home losartan # hyponatremia sodium 128, decreased from water intake follow labs # hyperkalemia Potassium 5.6, given Kayexalate follow bmp ?DVT prophylaxis Lovenox ?given oxygen requirement patient will require continued inpatient hospital stay for further management and monitoring Time Spent With Patient Time: Total time managing care of this patient today ____ minutes. Quality Stroke Does the patient have a stroke diagnosis?: No VTE Prior VTE?: No VTE Risk Level:: Medical - moderate - high VTE Device Contraindication: Treatment Not Indicated VTE Drug Contraindication: N/A - Med Ordered
[2022-05-13 14:16] LABS: Anion Gap 14 (12-20); Blood Urea Nitrogen 31 mg/dL (9-16); Calcium 9.5 mg/dL (8.4-10.2); Carbon Dioxide 25 mmol/L (22-29); Chloride 98 mmol/L (96-108); Creatinine Clr Calc Pharmacy 47.7; Estimated Glomerular Filt Rate 56; Glucose Random 189 mg/dL (60-115); Potassium 4.7 mmol/L (3.3-5.1); Sodium 132 mmol/L (135-145)
[2022-05-13 16:52] LABS: Glucose, Whole Blood 170 mg/dL (60-115)
[2022-05-13] MEDS: Enoxaparin Sodium 40 MG/0.4 ML SYRINGE SUBCUT (20:05)
[2022-05-13] MEDS: Azithromycin 500 MG TABLET PO (20:05)
[2022-05-13] MEDS: Losartan Potassium 50 MG TABLET 100 MG PO (20:05)
[2022-05-13 20:17] LABS: Glucose, Whole Blood 147 mg/dL (60-115)
[2022-05-14] VITALS (8 sets, daily range): BP systolic 143–156; BP diastolic 67–74; PULSE 89–101; RESP 16–185; TEMP 36.6–37.1; O2SAT 87–97
[2022-05-14] MEDS: guaiFENesin DM 100/10/5 ML 5 ML SYRUP 10 ML PO ×3 (07:42→20:03)
[2022-05-14] MEDS: 0.9 % Sodium Chloride Flush 3 ML SYRINGE IVFLUSH ×3 (07:46→20:03)
[2022-05-14] MEDS: methylPREDNISolone Sod Succ 40 MG/ML VIAL IVPUSH ×2 (07:46→20:02)
[2022-05-14] MEDS: Albuterol/Iprat 2.5/0.5MG 3 ML AMPUL.NEB INHALE ×4 (07:52→19:54)
--- NOTE | 2022-05-14 11:14 | HO.PM.IMPN ---
Subjective Subjective Date of Service: 05/14/22 Interval History: Seen and evaluated this morning Improving slowly but Still complaining of dyspnea on exertion and bilateral wheezes Resolved hyponatremia and hyperkalemia No other overnight events Review of Systems Review of Systems: Yes all other systems are reviewed and are negative Physical Exam Vital Signs: Vital Signs: Last Vital Signs Temp 98.0 F 05/14/22 08:00 Pulse 101 H 05/14/22 11:10 Resp 20 05/14/22 11:10 BP 150/67 H 05/14/22 08:00 Pulse Ox 88 L 05/14/22 08:00 O2 Del Method 05/14/22 08:00 O2 Flow Rate 2 05/14/22 04:00 Oxygen Flow Rate 4 05/11/22 14:57 BMI result Body Mass Index 27.3 Const: Other: General awake alert x3, in no acute distress. Neck is supple no JVD. CVS regular rate rhythm, Respiratory lungs diminished breath sounds, bilateral rhonchi, bilateral wheezes, on oxygen supplement Gastrointestinal abdomen soft, nontender, bowel sounds audible, no guarding , no rigidity. Extremities no clubbing cyanosis or edema. Neuro nonfocal Skin no rash Psych appropriate affect Objective Data Active Medications Acetaminophen (Acetaminophen 325 Mg Tablet) 650 mg PO Q6H PRN PRN Reason: Pain, Mild (Pain Scale 1-3) Albuterol/Ipratropium (Albuterol/Iprat 2.5/0.5mg 3 Ml Ampul.Neb) 3 ml INHALE RQ4H PRN PRN Reason: Shortness of Breath/Wheezing Albuterol/Ipratropium (Albuterol/Iprat 2.5/0.5mg 3 Ml Ampul.Neb) 3 ml INHALE RQ4H WHILE AWAKE [facility] Last Admin: 05/14/22 11:10 Dose: 3 ml Documented By: AVTAR Azithromycin (Azithromycin 500 Mg Tablet) 500 mg PO Q24H [facility] Last Admin: 05/13/22 20:05 Dose: 500 mg Documented By: DYLON Benzonatate (Benzonatate 100 Mg Capsule) 100 mg PO TID PRN PRN Reason: Cough Last Admin: 05/12/22 00:29 Dose: 100 mg Documented By: PETER Docusate Sodium (Docusate Sodium 100 Mg Capsule) 100 mg PO DAILY PRN PRN Reason: Constipation Enoxaparin Sodium (Enoxaparin Sodium 40 Mg/0.4 Ml Syringe) 40 mg SUBCUT Q24H [facility] Last Admin: 05/13/22 20:05 Dose: 40 mg Documented By: DYLON Guaifenesin/Dextromethorphan (Guaifenesin Dm 100/10/5 Ml 5 Ml Syrup) 10 ml PO TID [facility] Last Admin: 05/14/22 07:42 Dose: 10 ml Documented By: MEDARDO Losartan Potassium (Losartan Potassium 50 Mg Tablet) 100 mg PO BEDTIME [facility]; Protocol Last Admin: 05/13/22 20:05 Dose: 100 mg Documented By: DYLON Methylprednisolone Sodium Succinate (Methylprednisolone Sod Succ 40 Mg/Ml Vial) 40 mg IVPUSH Q12H [facility] Last Admin: 05/14/22 07:46 Dose: 40 mg Documented By: MEDARDO Ondansetron HCl (Ondansetron Hcl 4 Mg/2 Ml Vial) 4 mg IVPUSH Q8H PRN PRN Reason: Nausea and Vomiting Pharmacy Consult (Consult Rx Perform Med Rec) 1 each MISCELLANE ONCE PRN PRN Reason: Consult order Sodium Chloride (0.9 % Sodium Chloride Flush 3 Ml Syringe) 3 ml IVFLUSH QSHIFT [facility] Last Admin: 05/14/22 07:46 Dose: 3 ml Documented By: MEDARDO Labs CBC & Chem 7: 05/12/22 05:03 05/13/22 13:43 Labs: Laboratory Results - last 24 hr 05/13/22 05/13/22 05/13/22 13:43 16:47 20:13 Anion Gap 14 Estim Creat Clear Calc 47.7 Estimated GFR 56 POC Glucose 170 H 147 H Random Glucose 189 H Calcium 9.5 Assessment and Plan (1) Acute respiratory failure with hypoxia: Status: Acute (2) Asthma with COPD with exacerbation: Status: Acute (3) Hyponatremia: Status: Acute (4) Hyperkalemia: Status: Acute Plan 67-year-old female with past medical history of COPD asthma overlap syndrome, as well as hypertension presents to the hospital with complaints of shortness of breath found to be hypoxic #? acute hypoxic respiratory failure, secondary to COPD /asthma exacerbation Improving slowly chest CT angiogram with no PE Continue scheduled and as needed DuoNeb Continue IV Solu-Medrol 40 mg b.i.d. continue po azithromycin 500 mg daily day 4 continue as needed cough medication and add scheduled Robitussin wean oxygen as tolerated #? hypertension elevated blood pressure on arrival to the emergency room, BP improving continue home losartan # hyponatremia sodium 132 follow labs # hyperkalemia Potassium 4.7 after Kayexalate follow bmp ?DVT prophylaxis Lovenox ?given oxygen requirement patient will require continued inpatient hospital stay for further management and monitoring Time Spent With Patient Time: Total time managing care of this patient today ____ minutes. Quality Stroke Does the patient have a stroke diagnosis?: No VTE Prior VTE?: No VTE Risk Level:: Medical - moderate - high VTE Device Contraindication: Treatment Not Indicated VTE Drug Contraindication: N/A - Med Ordered
[2022-05-14 16:40] LABS: Glucose, Whole Blood 167 mg/dL (60-115)
[2022-05-14] MEDS: Losartan Potassium 50 MG TABLET 100 MG PO (20:02)
[2022-05-14] MEDS: Azithromycin 500 MG TABLET PO (20:02)
[2022-05-14] MEDS: Enoxaparin Sodium 40 MG/0.4 ML SYRINGE SUBCUT (20:02)
[2022-05-15] VITALS (9 sets, daily range): BP systolic 125–179; BP diastolic 60–84; PULSE 67–97; RESP 16–20; TEMP 36.1–37.2; O2SAT 92–97
[2022-05-15 07:40] LABS: Glucose, Whole Blood 125 mg/dL (60-115)
[2022-05-15] MEDS: Albuterol/Iprat 2.5/0.5MG 3 ML AMPUL.NEB INHALE ×4 (07:41→19:42)
[2022-05-15] MEDS: 0.9 % Sodium Chloride Flush 3 ML SYRINGE IVFLUSH ×2 (08:16→20:41)
[2022-05-15] MEDS: guaiFENesin DM 100/10/5 ML 5 ML SYRUP 10 ML PO (08:16)
[2022-05-15] MEDS: methylPREDNISolone Sod Succ 40 MG/ML VIAL IVPUSH ×2 (08:16→20:41)
[2022-05-15] MEDS: amLODIPine Besylate 2.5 MG TABLET PO (08:17)
[2022-05-15] MEDS: Magnesium Sulfate/H2O 2 GM/50 ML PIGGYBACK IV (11:03)
[2022-05-15] MEDS: Benzonatate 100 MG CAPSULE PO ×3 (11:03→20:41)
[2022-05-15] MEDS: guaiFENesin DM 600/30 1 TAB TAB.ER.12H PO ×2 (11:03→20:41)
--- NOTE | 2022-05-15 11:25 | P.PNIM_ITS ---
Subjective Subjective Date of Service: 05/15/22 Interval History: Seen and evaluated this morning Still complaining of dyspnea on exertion and bilateral wheezes Still requiring oxygen supplement No other overnight events Review of Systems Review of Systems: Yes all other systems are reviewed and are negative Physical Exam Vital Signs: Vital Signs: Last Vital Signs Temp 96.9 F 05/15/22 07:25 Pulse 84 05/15/22 07:42 Resp 18 05/15/22 11:02 BP 176/81 H 05/15/22 07:25 Pulse Ox 93 05/15/22 07:25 O2 Del Method 05/15/22 07:25 O2 Flow Rate 2 05/15/22 07:25 Oxygen Flow Rate 4 05/11/22 14:57 BMI result Body Mass Index 27.3 Const: Other: General awake alert x3, in no acute distress. Neck is supple no JVD. CVS regular rate rhythm, Respiratory lungs diminished breath sounds, bilateral rhonchi, bilateral wheezes, on oxygen supplement Gastrointestinal abdomen soft, nontender, bowel sounds audible, no guarding , no rigidity. Extremities no clubbing cyanosis or edema. Neuro nonfocal Skin no rash Psych appropriate affect Objective Data Active Medications Acetaminophen (Acetaminophen 325 Mg Tablet) 650 mg PO Q6H PRN PRN Reason: Pain, Mild (Pain Scale 1-3) Albuterol/Ipratropium (Albuterol/Iprat 2.5/0.5mg 3 Ml Ampul.Neb) 3 ml INHALE RQ4H PRN PRN Reason: Shortness of Breath/Wheezing Albuterol/Ipratropium (Albuterol/Iprat 2.5/0.5mg 3 Ml Ampul.Neb) 3 ml INHALE R Q4H WHILE AWAKE [facility] Last Admin: 05/15/22 11:02 Dose: 3 ml Documented By: AVTAR Amlodipine Besylate (Amlodipine Besylate 2.5 Mg Tablet) 2.5 mg PO DAILY [facility]; Protocol Last Admin: 05/15/22 08:17 Dose: 2.5 mg Documented By: MIN Azithromycin (Azithromycin 500 Mg Tablet) 500 mg PO Q24H [facility] Last Admin: 05/14/22 20:02 Dose: 500 mg Documented By: ADDIRISM Benzonatate (Benzonatate 100 Mg Capsule) 100 mg PO TID [facility] Last Admin: 05/15/22 11:03 Dose: 100 mg Documented By: MIN Docusate Sodium (Docusate Sodium 100 Mg Capsule) 100 mg PO DAILY PRN PRN Reason: Constipation Enoxaparin Sodium (Enoxaparin Sodium 40 Mg/0.4 Ml Syringe) 40 mg SUBCUT Q24H [facility] Last Admin: 05/14/22 20:02 Dose: 40 mg Documented By: VIANEY Guaifenesin/Dextromethorphan (Guaifenesin Dm 600/30 1 Tab Tab.Er.12h) 1 tab PO BID [facility] Last Admin: 05/15/22 11:03 Dose: 1 tab Documented By: MIN Magnesium Sulfate (Magnesium Sulfate/H2o) 2 gm in 50 mls @ 25 mls/hr IV ONCE ONE Stop: 05/15/22 12:12 Last Admin: 05/15/22 11:03 Dose: 25 mls/hr Documented By: MIN Losartan Potassium (Losartan Potassium 50 Mg Tablet) 100 mg PO BEDTIME [facility]; Protocol Last Admin: 05/14/22 20:02 Dose: 100 mg Documented By: VIANEY Methylprednisolone Sodium Succinate (Methylprednisolone Sod Succ 40 Mg/Ml Vial) 40 mg IVPUSH Q12H [facility] Last Admin: 05/15/22 08:16 Dose: 40 mg Documented By: MIN Ondansetron HCl (Ondansetron Hcl 4 Mg/2 Ml Vial) 4 mg IVPUSH Q8H PRN PRN Reason: Nausea and Vomiting Pharmacy Consult (Consult Rx Perform Med Rec) 1 each MISCELLANE ONCE PRN PRN Reason: Consult order Sodium Chloride (0.9 % Sodium Chloride Flush 3 Ml Syringe) 3 ml IVFLUSH QSHIFT [facility] Last Admin: 05/15/22 08:16 Dose: 3 ml Documented By: MIN Labs CBC & Chem 7: 05/12/22 05:03 05/13/22 13:43 Labs: Laboratory Results - last 24 hr 05/14/22 05/15/22 16:35 07:30 POC Glucose 167 H 125 H Assessment and Plan (1) Acute respiratory failure with hypoxia: Status: Acute (2) Asthma with COPD with exacerbation: Status: Acute Plan 67-year-old female with past medical history of COPD asthma overlap syndrome, as well as hypertension presents to the hospital with complaints of shortness of breath found to be hypoxic #? acute hypoxic respiratory failure, secondary to COPD /asthma exacerbation Improving slowly but still wheezy and dyspneic with exertion chest CT angiogram with no PE Continue scheduled and as needed DuoNeb Continue IV Solu-Medrol 40 mg b.i.d. continue po azithromycin 500 mg daily day 5 Start Mucinex DM, give IV magnesium sulfate continue as needed cough medication and Robitussin wean oxygen as tolerated #? hypertension elevated blood pressure on arrival to the emergency room, BP improving continue home losartan # hyponatremia sodium 132 follow labs # hyperkalemia Potassium 4.7 after Kayexalate follow bmp ?DVT prophylaxis Lovenox ?given oxygen requirement patient will require continued inpatient hospital stay for further management and monitoring Time Spent With Patient Time: Total time managing care of this patient today ____ minutes. Quality Stroke Does the patient have a stroke diagnosis?: No VTE Prior VTE?: No VTE Risk Level:: Medical - moderate - high VTE Device Contraindication: Treatment Not Indicated VTE Drug Contraindication: N/A - Med Ordered
[2022-05-15] MEDS: Enoxaparin Sodium 40 MG/0.4 ML SYRINGE SUBCUT (20:41)
[2022-05-15] MEDS: Losartan Potassium 50 MG TABLET 100 MG PO (20:41)
[2022-05-15] MEDS: Azithromycin 500 MG TABLET PO (20:41)
[2022-05-16] VITALS (9 sets, daily range): BP systolic 139–149; BP diastolic 64–68; PULSE 75–96; RESP 15–18; TEMP 36.1–36.8; O2SAT 86–95
[2022-05-16] MEDS: Albuterol/Iprat 2.5/0.5MG 3 ML AMPUL.NEB INHALE ×4 (08:25→19:49)
[2022-05-16] MEDS: 0.9 % Sodium Chloride Flush 3 ML SYRINGE IVFLUSH ×3 (09:38→19:41)
[2022-05-16] MEDS: Benzonatate 100 MG CAPSULE PO ×3 (09:38→19:35)
[2022-05-16] MEDS: guaiFENesin DM 600/30 1 TAB TAB.ER.12H PO ×2 (09:38→19:35)
[2022-05-16] MEDS: methylPREDNISolone Sod Succ 40 MG/ML VIAL IVPUSH ×2 (09:38→19:35)
[2022-05-16] MEDS: amLODIPine Besylate 2.5 MG TABLET PO (09:38)
--- NOTE | 2022-05-16 10:55 | HO.PM.IMPN ---
Subjective Subjective Date of Service: 05/16/22 Interval History: Seen and evaluated this morning Still complaining of dyspnea on exertion and bilateral wheezes , improving slowly Still requiring oxygen supplement No other overnight events Review of Systems Review of Systems: Yes all other systems are reviewed and are negative Physical Exam Vital Signs: Vital Signs: Last Vital Signs Temp 98.2 F 05/16/22 08:00 Pulse 78 05/16/22 08:27 Resp 15 05/16/22 08:27 BP 149/65 H 05/16/22 08:00 Pulse Ox 93 05/16/22 08:00 O2 Del Method 05/16/22 08:00 O2 Flow Rate 2 05/16/22 08:00 Oxygen Flow Rate 4 05/11/22 14:57 BMI result Body Mass Index 27.3 Const: Other: General awake alert x3, in no acute distress. Neck is supple no JVD. CVS regular rate rhythm, Respiratory lungs diminished breath sounds, bilateral rhonchi, bilateral wheezes, on oxygen supplement Gastrointestinal abdomen soft, nontender, bowel sounds audible, no guarding , no rigidity. Extremities no clubbing cyanosis or edema. Neuro nonfocal Skin no rash Psych appropriate affect Objective Data Active Medications Acetaminophen (Acetaminophen 325 Mg Tablet) 650 mg PO Q6H PRN PRN Reason: Pain, Mild (Pain Scale 1-3) Albuterol/Ipratropium (Albuterol/Iprat 2.5/0.5mg 3 Ml Ampul.Neb) 3 ml INHALE RQ4H PRN PRN Reason: Shortness of Breath/Wheezing Albuterol/Ipratropium (Albuterol/Iprat 2.5/0.5mg 3 Ml Ampul.Neb) 3 ml INHALE RQ4H WHILE AWAKE [facility] Last Admin: 05/16/22 08:25 Dose: 3 ml Documented By: LETA Amlodipine Besylate (Amlodipine Besylate 2.5 Mg Tablet) 2.5 mg PO DAILY [facility]; Protocol Last Admin: 05/16/22 09:38 Dose: 2.5 mg Documented By: MIN Azithromycin (Azithromycin 500 Mg Tablet) 500 mg PO Q24H [facility] Last Admin: 05/15/22 20:41 Dose: 500 mg Documented By: ADDIRISAlberto Benzonatate (Benzonatate 100 Mg Capsule) 100 mg PO TID [facility] Last Admin: 05/16/22 09:38 Dose: 100 mg Documented By: MIN Docusate Sodium (Docusate Sodium 100 Mg Capsule) 100 mg PO DAILY PRN PRN Reason: Constipation Enoxaparin Sodium (Enoxaparin Sodium 40 Mg/0.4 Ml Syringe) 40 mg SUBCUT Q24H [facility] Last Admin: 05/15/22 20:41 Dose: 40 mg Documented By: VIANEY Guaifenesin/Dextromethorphan (Guaifenesin Dm 600/30 1 Tab Tab.Er.12h) 1 tab PO BID [facility] Last Admin: 05/16/22 09:38 Dose: 1 tab Documented By: MIN Losartan Potassium (Losartan Potassium 50 Mg Tablet) 100 mg PO BEDTIME [facility]; Protocol Last Admin: 05/15/22 20:41 Dose: 100 mg Documented By: VIANEY Methylprednisolone Sodium Succinate (Methylprednisolone Sod Succ 40 Mg/Ml Vial) 40 mg IVPUSH Q12H [facility] Last Admin: 05/16/22 09:38 Dose: 40 mg Documented By: MIN Ondansetron HCl (Ondansetron Hcl 4 Mg/2 Ml Vial) 4 mg IVPUSH Q8H PRN PRN Reason: Nausea and Vomiting Pharmacy Consult (Consult Rx Perform Med Rec) 1 each MISCELLANE ONCE PRN PRN Reason: Consult order Sodium Chloride (0.9 % Sodium Chloride Flush 3 Ml Syringe) 3 ml IVFLUSH QSHIFT [facility] Last Admin: 05/16/22 09:38 Dose: 3 ml Documented By: MIN Labs CBC & Chem 7: 05/12/22 05:03 05/13/22 13:43 Assessment and Plan (1) Acute respiratory failure with hypoxia: Status: Acute (2) Asthma with COPD with exacerbation: Status: Acute Plan 67-year-old female with past medical history of COPD asthma overlap syndrome, as well as hypertension presents to the hospital with complaints of shortness of breath found to be hypoxic #? acute hypoxic respiratory failure, secondary to COPD /asthma exacerbation Improving slowly but still wheezy and dyspneic with exertion Dropped to 86% on room air this morning chest CT angiogram with no PE Continue scheduled and as needed DuoNeb Continue IV Solu-Medrol 40 mg b.i.d. Finished po azithromycin 500 mg daily day 5 Start Mucinex DM, give IV magnesium sulfate continue as needed cough medication and Robitussin To do home O2 evaluation wean oxygen as tolerated #? hypertension elevated blood pressure on arrival to the emergency room, BP improving continue home losartan # hyponatremia sodium 132 follow labs # hyperkalemia Potassium 4.7 after Kayexalate follow bmp ?DVT prophylaxis Lovenox ?given oxygen requirement patient will require continued inpatient hospital stay for further management and monitoring Time Spent With Patient Time: Total time managing care of this patient today ____ minutes. Quality Stroke Does the patient have a stroke diagnosis?: No VTE Prior VTE?: No VTE Risk Level:: Medical - moderate - high VTE Device Contraindication: Treatment Not Indicated VTE Drug Contraindication: N/A - Med Ordered
[2022-05-16] MEDS: Losartan Potassium 50 MG TABLET 100 MG PO (19:34)
[2022-05-16] MEDS: Enoxaparin Sodium 40 MG/0.4 ML SYRINGE SUBCUT (19:35)
[2022-05-16] MEDS: Azithromycin 500 MG TABLET PO (19:35)
[2022-05-17 03:18] VITALS: BP 144/66; PULSE 90; RESP 18; TEMP 36.8; O2SAT 98
[2022-05-17 07:58] VITALS: BP 143/68; PULSE 73; RESP 18; TEMP 36.4; O2SAT 93
[2022-05-17 08:29] VITALS: PULSE 90; RESP 18; O2SAT 89
[2022-05-17] MEDS: Albuterol/Iprat 2.5/0.5MG 3 ML AMPUL.NEB INHALE (08:29)
[2022-05-17] MEDS: guaiFENesin DM 600/30 1 TAB TAB.ER.12H PO (08:33)
[2022-05-17] MEDS: Benzonatate 100 MG CAPSULE PO (08:33)
[2022-05-17] MEDS: 0.9 % Sodium Chloride Flush 3 ML SYRINGE IVFLUSH (08:33)
[2022-05-17] MEDS: amLODIPine Besylate 2.5 MG TABLET PO (08:33)
[2022-05-17] MEDS: methylPREDNISolone Sod Succ 40 MG/ML VIAL IVPUSH (08:33)
--- NOTE | 2022-05-17 10:25 | PM.DS ---
DS: Providers Provider Date of Service: 05/17/22 Date of admission: 05/11/22 20:48 Primary care physician: Graeme Jj MD DS: Diagnosis Discharge Diagnosis (1) Acute respiratory failure with hypoxia: Status: Acute (2) Asthma with COPD with exacerbation: Status: Acute (3) Hyponatremia: Status: Acute (4) Hyperkalemia: Status: Acute DS: Summary Hospital Course Hospital Course: Admission note HPI 67-year-old female with past medical history of asthma COPD overlap syndrome, hypertension, presented to the ED with complaints of shortness of breath, wheezing, cough,? and increased sputum production? for the past 1 week.? Patient presented to med is compressed found to be 76% on room air, patient placed? on oxygen with improvement of her symptoms.? Patient reports that she has had recurrent COPD exacerbations since December, reports no chest pain, no palpitations, no abdominal pain nausea or vomiting, no diarrhea constipation, no urinary symptoms and no lower extremity edema.? ?on arrival to the ED patient hemodynamically stable with a respiratory rate of 22, satting 96% on 4 L of oxygen.? Labs are significant for sodium of 132, BNP of 87, troponin less than 3.5, viral serology negative Chest CT angiogram shows no PE, no airspace consolidation or effusion.? Mild emphysema and diffuse bronchial wall thickening and scattered and a brachial secretion consistent with bronchitis Hospital course The patient was admitted for evaluation of difficulty breathing. Treated mainly for acute hypoxic respiratory failure secondary to acute COPD/and asthma exacerbation requiring treatment with antibiotics, steroids, bronchodilator nebulizers and oxygen supplement which was weaned down during the hospital stay but the patient could not get off the oxygen as she kept becoming hypoxic on room air. Head home O2 evaluation and qualified for home oxygen which will be delivered to her home prior to discharge. To be started on Spiriva and fluticasone and to finish tapering dose of steroids at time of discharge. Nebulizer was prescribed for anais Riggs. She is supposed to follow-up with Dr. Block at the office in few weeks. Start prednisone tapering dose as prescribed Start Spiriva and fluticasone inhalers as prescribed Use DuoNeb nebulizer as needed To follow-up with pulmonology as outpatient in 2-4 weeks Time Spent with Patient Time attestation: Total time managing care of this patient today ____ minutes. Discharge coordination time: Greater than 30 minutes Quality: Safe Use of Opioids Does Pt have an Active Cancer Diagnosis on the Problem List?: No Quality: Stroke Does the patient have a stroke diagnosis?: No Physical Exam Vital Signs: Vital Signs: Last Vital Signs Temp 97.6 F 05/17/22 07:58 Pulse 90 05/17/22 08:29 Resp 18 05/17/22 08:29 BP 143/68 H 05/17/22 07:58 Pulse Ox 93 05/17/22 07:58 O2 Del Method 05/17/22 07:58 O2 Flow Rate 1.5 05/17/22 07:58 Oxygen Flow Rate 4 05/11/22 14:57 BMI result Body Mass Index 27.3 Const: Other: General awake alert x3, in no acute distress. Neck is supple no JVD. CVS regular rate rhythm, Respiratory fair bilateral breath sounds, fine expiratory bilateral wheezes, on oxygen supplement Gastrointestinal abdomen soft, nontender, bowel sounds audible, no guarding , no rigidity. Extremities no clubbing cyanosis or edema. Neuro nonfocal Skin no rash Psych appropriate affect DS: Data Imaging Chest x-ray: Radiologist's impression: ITS Impressions Chest X-Ray 05/11/22 15:55 IMPRESSION: Question bronchial wall thickening of the right lung base. Chest CTA 05/11/22 17:57 IMPRESSION: 1. No evidence of pulmonary embolus. 2. No airspace consolidation or effusions. 3. Mild centrilobular emphysema and mild diffuse bronchial wall thickening and scattered endobronchial secretions consistent with bronchitis. VTE: negative Discharge Plan Discharge Anticipated Discharge Date/Time: 05/17/22 10:09 Patient Disposition: Home, Self-Care Discharge Diagnosis: Acute asthma\COPD exacerbation with respiratory failure Referrals: Graeme Jj MD [Primary Care Provider] - 1 Week Discharge Medications: New ipratropium-albuterol 0.5 mg-3 mg(2.5 mg base)/3 mL Solution For Nebulization 3 ml inhalation RQ4H PRN (Reason: Shortness Of Breath/Wheezing) Qty: 150 0RF Mucus DM 30-600 mg Tablet Extended Release 12 Hr 1 tab PO BID Qty: 14 0RF Spiriva Respimat 2.5 mcg/actuation mist 2 puff inhalation QAM Qty: 4 0RF fluticasone propionate 110 mcg/actuation HFA aerosol inhaler 2 puff inhalation BID Qty: 12 1RF prednisone 10 mg tablet See Taper PO DIRECTED Qty: 30 0RF Taper: Prednisone 40 mg daily for 3 Days and 0 Hour 30 mg daily for 3 Days and 0 Hour 20 mg daily for 3 Days and 0 Hour 10 mg daily for 3 Days and 0 Hour Rx Instructions: see taper instructions Continued albuterol sulfate 90 mcg/actuation HFA aerosol inhaler 2 puff INHALATION Q4H PRN (Reason: dyspnea) losartan 100 mg tablet 1 tab PO BEDTIME Discharge Orders: Discharge Order (Routine); Ordered 05/17/22 Ordered By: Fabrice Dougherty Diet: Advance to usual diet Activity on Discharge: As tolerated Stand Alone Forms: Patient Portal Discharge page Care Plan Goals: Read below Health Concerns: Read below Plan of Treatment: Read below Assessment: You were admitted to the hospital for treatment of difficulty breathing. Found to be on asthma/COPD exacerbation requiring oxygen supplement, steroids, bronchodilator nebulizers and antibiotic with good response over the course of hospital stay. You continued to need oxygen supplement at time of discharge. Start prednisone tapering dose as prescribed Start Spiriva and fluticasone inhalers as prescribed Use DuoNeb nebulizer as needed To follow-up with pulmonology as outpatient in 2-4 weeks
--- NOTE | 2022-05-17 12:01 | MHC.CM.PN ---
PT MEDICALLY CLEARED FOR D/C HOME NO SERVICES AND NEW NEBULIZER AND HOME O2 W/FAMILY [facility] FOR TRANSPORT
== END 2022-05-17 11:44 | disposition home or self-care (01) | DRG 190 ==
LOC: HO.ED 18:32 → HO.EDOVER 20:58 → HO.S3 23:05
PROVIDERS: Hospitalist; Physician Assistant; Admitting Provider Internal Medicine; Emergency Provider Emergency Medicine; PCP Internal Medicine; Visit Provider Student in an Organized Health Care Education/Training Program
DX: J44.1 Chronic obstructive pulmonary disease with (acute) exacerbation (principal); J96.01 Acute respiratory failure with hypoxia; E87.1 Hypo-osmolality and hyponatremia; J45.901 Unspecified asthma with (acute) exacerbation; I10 Essential (primary) hypertension; E87.5 Hyperkalemia; F17.210 Nicotine dependence, cigarettes, uncomplicated; Z20.822 Contact with and (suspected) exposure to COVID-19; Z71.6 Tobacco abuse counseling; Z79.899 Other long term (current) drug therapy
CPT/HCPCS: 0241U; 36415; 71045; 71275; 80048; 80076; 82947; 83735; 83880; 84484; 85025; 93005; 96365; 96366; 99285; J1650; J2920; J3475; Q9967

== ENCOUNTER 2023-11-22 10:13 | Outpatient (AMB) | payer OTHER, SELFPAY ==
--- NOTE | 2023-11-22 10:17 | A.OFFVIS_ITS ---
Vital Signs 11/22/23 10:18 Height 5 ft 1 in Weight 143 lb 4 oz BMI 27.1 BP 122/64 Blood Pressure Location Lt brachial Position Sitting Pulse 90 Pulse Source Pulse Oximeter Pulse Oximetry (%) 92 Oxygen Delivery Method Room Air Intake Visit Reasons: COPD Allergies No Known Allergies Allergy (Verified 11/22/23 10:21) HPI HPI COPD: Details: Rebecca is pleasant 68 year old female, current 1/2 ppd smoker, with approximately 75+ pack-year history, and underlying COPD and hypertension. She was referred by PCP for pulmonary evaluation. She reports worsening symptoms of dyspnea on exertion, chest tightness, wheezing and productive cough with clear sputum. She was last treated for a COPD exacerbation in April by PCP with doxycycline and prednisone with resolution of symptoms. Chest x-ray at that time was negative for anything acute. She has been admitted on multiple occasions due to COPD exacerbations. She is currently prescribed albuterol which she uses multiple times a day with poor effect. He denies any prior diagnosis of asthma. She does report seasonal allergies, using an antihistamine with moderate effect. She denies any pertinent family history. She denies any occupational exposures. She denies any chest CT in the past or being a part of a lung screening program. [facility] Medical History Asthma-COPD overlap syndrome Hypertension Surgical History No pertinent past surgical history Family History Other No family history of coronary artery disease Social History Household Members: Spouse Housing: Other Housing Other:: housing Do you presently have visiting nurse or other home services: No Patient Tobacco Use Status: Current someday Tobacco user Tobacco use type: Cigarette Cigarettes Per Day: 10 Second Hand Smoke Exposure: No service: No Current occupational status: employed Review of Systems Const Denies chills, Denies excessive sweating, Denies fever(s), Denies headache(s) and Denies night sweats Eyes Denies dry eyes, Denies irritation and Denies itchy eyes ENT Reports Normal hearing present and Denies headache(s) Card Denies chest pain, Denies chest pain at rest, Denies chest pain with activity, Denies claudication, Denies leg edema, Denies orthopnea and Denies paroxysmal nocturnal dyspnea Resp Denies chest congestion, Denies excessive phlegm production, Denies pain on inspiration, Denies pain with cough and Denies stridor Musc Denies myalgias Neuro Reports Normal hearing present and Denies headache(s) Endo Denies excessive sweating Nir/Lymph Denies lymphadenopathy Aller/Immun Denies itchy eyes and Denies seasonal rhinorrhea Physical Exam Vital Signs: Last Vital Signs Pulse 90 11/22/23 10:18 BP 122/64 11/22/23 10:18 Pulse Ox 92 11/22/23 10:18 Oxygen Delivery Method Room Air 11/22/23 10:18 BMI result Body Mass Index 27.1 Const General: cooperative, healthy appearing, comfortable, no acute distress, well developed and alert Orientation/consciousness: patient oriented x3 Limitations: no limitations HEENT Head: Yes normal to inspection, Yes normocephalic and Yes atraumatic Ears: hearing grossly normal bilaterally and external ears normal Eyes General: appearance normal, both eyes and all related structures Eyelids: Yes eyelids normal Sclerae: sclerae normal EOM: EOMs intact bilaterally Neck Neck: Yes normal visual inspection and Yes no lymphadenopathy Lymphatic: no lymphadenopathy noted Chest Chest palpation & inspection: normal inspection of the chest Resp Other: Faint expiratory wheezes throughout Effort & Inspection: normal respiratory effort, able to speak in complete sentences, no audible wheezes, no cough, no stridor, not tachypneic, no tripod positioning and no use of accessory muscles Cardio Jugular venous distension: no JVD Rate: regular rate Rhythm: regular rhythm Skin Other: warm, dry General skin exam: no rashes or lesions noted Neuro General: patient oriented x3 Cranial nerves: Yes Normal hearing present Cognition (Neuro): normal cognition Gait exam (Neuro): Normal gait present Extrem General: Yes normal to inspection, Yes capillary refill normal, Yes no clubbing, cyanosis or edema and Yes no pedal edema Psych Appearance: grossly normal and well kempt Speech and movement: Normal speech and movement present and Clear speech present Affect: normal affect Attitude: cooperative Thought process: Normal thought process present Thought content: Normal thought content present Insight: Good insight present (Psych) Judgement: Good judgement present (Psych) Assessment & Plan Assessment & Plan (1) COPD (chronic obstructive pulmonary disease): Code(s): J44.9 - Chronic obstructive pulmonary disease, unspecified Category: Medical (2) Environmental allergies: Code(s): Z91.09 - Other allergy status, other than to drugs and biological substances Category: Medical (3) Nicotine dependence, cigarettes, uncomplicated: Code(s): F17.210 - Nicotine dependence, cigarettes, uncomplicated Category: Medical Plan Rebecca's symptoms are likely related to underlying COPD, unclear severity. Will send for PFT to thoroughly evaluate. Will also send for RAST testing as patient may have an allergic component contributing to symptoms. She reports poor effect with albuterol use, will trial Trelegy. Previously she was prescribed Spiriva and Flovent with minimal improvements. On exam today patient with expiratory wheezing throughout, will send in prednisone. She is aware to call the office if symptoms do not improve or seek Urgent Care if they worsen. Patient with 75+ pack-year history and continues to smoke, but discussed smoking cessation but not ready to quit at this time. She denies any previous chest CT, will send as she has a significant smoking history. All questions were answered and patient is in agreement of plan. Will follow-up in 6-8 weeks to review effectiveness of Trelegy and CT results. Orders: Orders Complete Blood Count Auto Diff 11/22/23 Z91.09 - Other allergy status, other than to drugs and biological substances Immunoglobulin E 11/22/23 Z91.09 - Other allergy status, other than to drugs and biological substances CT chest wo IV con Today F17.210 - Nicotine dependence, cigarettes, uncomplicated PFT pulmonary function test Today J44.9 - Chronic obstructive pulmonary disease, unspecified Resp Allergy Profile Region I 11/22/23 Z91.09 - Other allergy status, other than to drugs and biological substances Medications: New prednisone 40 mg (2 x 20 mg) PO DAILY 10 tabs 0RF [id number]-[id number]-wylmnwli 200-62.5-25 mcg (Trelegy Ellipta) 1 inh inhalation DAILY 60 ea 6RF Discontinued dextromethorphan-guaifenesin 30-600 mg (Mucus DM) Discontinued Reason: Patient Completed Course 1 tab PO BID 14 tabs 0RF fluticasone propionate 110 mcg/actuation Discontinued Reason: Patient Completed Course 2 puffs inhalation BID 12 grams 1RF tiotropium bromide 2.5 mcg/actuation (Spiriva Respimat) Discontinued Reason: Patient Completed Course 2 puffs inhalation QAM 4 grams 0RF prednisone see taper instructions Discontinued Reason: Patient Completed Course See Taper PO DIRECTED 30 tabs 0RF Coding Level of Care Code New Pt Level 4 (11516) Diagnoses COPD (chronic obstructive pulmonary disease) J44.9 Environmental allergies Z91.09 Nicotine dependence, cigarettes, uncomplicated F17.210
[2023-11-22 10:18] VITALS: BP 122/64; PULSE 90; O2SAT 92; BMI 27.1
== END 2023-11-22 11:08 | disposition home or self-care (01) ==
PROVIDERS: PCP Family Medicine; Referring Provider Internal Medicine; Visit Provider Nurse Practitioner Family
DX: J44.9 Chronic obstructive pulmonary disease, unspecified (principal); Z91.09 Other allergy status, other than to drugs and biological substances; F17.210 Nicotine dependence, cigarettes, uncomplicated
CPT/HCPCS: 99204

== ENCOUNTER → 2023-11-22 10:13 | Outpatient (BNVA) | payer OTHER, SELFPAY | PROVIDERS: PCP Family Medicine; Referring Provider Internal Medicine; Visit Provider Nurse Practitioner Family ==

== ENCOUNTER 2023-11-22 11:10 | Outpatient (REF) | payer OTHER, SELFPAY ==
[2023-11-22 13:58] LABS: MANUAL DIFF FLAG NO
[2023-11-22 14:15] LABS: Basophils Absolute Auto 0.1 X10*3/uL (0.0-0.2); Basophils Percent Auto 1.5 % (0-2); Eosinophils Absolute Auto 0.3 X10*3/uL (0.0-0.4); Eosinophils Percent Auto 3.9 % (0-4); Hematocrit 40.3 % (37.0-47.0); Hemoglobin 13.5 g/dl (12.0-16.0); Imm Gran Abs Auto 0.02 X10*3/uL (0.00-0.03); Imm Gran Pct Auto 0.3 % (0.0-0.4); Lymphocytes Absolute Auto 1.7 X10*3/uL (1.2-4.9); Mean Corpuscular HGB Conc 33.5 g/dl (31.0-35.0); Mean Corpuscular Hemoglobin 32.8 pg (27.0-33.0); Mean Corpuscular Volume 98.1 fL (80.0-98.0); Mean Platelet Volume 10.3 fL (9.4-12.3); Monocytes Absolute Auto 0.6 X10*3/uL (0.1-1.2); Neutrophils Percent Auto 59.3 % (45-73); Platelet Count 240 X10*3/uL (160-400); Red Blood Count 4.11 X10*6/uL (4.20-5.50); Red Cell Distribution Width 12.9 % (11.0-16.0); White Blood Count 6.7 X10*3/uL (4.8-10.8)
[2023-11-24 17:53] LABS: Class Alternaria alternata 0; Class Aspergillus fumigatus 0; Class Bermuda Grass 0; Class Birch 0; Class Cat Dander 0; Class Cladosporium herbarum 0; Class Cockroach 0; Class Common Ragweed 0; Class Cottonwood 0; Class Derm. pterony 0; Class Dermatophagoides farinae 0; Class Dog Dander 0; Class Elm 0; Class Maple Box Elder 0; Class Mountain Cedar 0; Class Mouse Urine Protein 0; Class Mugwort 0; Class Oak 0; Class Penicillium crysogenum 0; Class Rough Pigweed 0; Class Sheep Sorrel 0; Class Sycamore 0; Class Timothy Grass 0; Class Walnut Tree 0; Class White Ash 0; Class White Mulberry 0; D001 IgE D pteronyssinus <0.10 kU/L; D002 - IgE D farinae <0.10 kU/L; E001 - IgE Cat Dander <0.10 kU/L; E005 - IgE Dog Dander <0.10 kU/L; E072-IgE Mouse Urine <0.10 kU/L; G002 IgE Bermuda Grass <0.10 kU/L; G006 - IgE Timothy Grass <0.10 kU/L; I006-IgE Cockroach, German <0.10 kU/L; Immunoglobulin E <2 kU/L (<OR=114); M001 IgE Penicillium chrysogen <0.10 kU/L; M002 - IgE Cladosporium herbar <0.10 kU/L; M003 - IgE Aspergillus fumigat <0.10 kU/L; M006 - IgE Alternaria alternat <0.10 kU/L; T001 IgE Maple/Box Elder <0.10 kU/L; T003 IgE Common Silver Birch <0.10 kU/L; T006 - IgE Cedar, Mountain <0.10 kU/L; T007 - IgE Oak, White <0.10 kU/L; T008 IgE Elm, American <0.10 kU/L; T010 - IgE Walnut <0.10 kU/L; T011 - IgE Maple Leaf Sycamore <0.10 kU/L; T014 - IgE Cottonwood <0.10 kU/L; T015 - IgE Ash, White <0.10 kU/L; T070 - IgE White Mulberry <0.10 kU/L; W001 - IgE Ragweed, Short <0.10 kU/L; W006 - IgE Mugwort <0.10 kU/L; W014 IgE Pigweed, Common <0.10 kU/L; W018 IgE Sheep Sorrel <0.10 kU/L
== END 2023-11-22 11:11 | disposition home or self-care (01) ==
LOC: HO.WFDLDS 11:10
PROVIDERS: Visit Provider Nurse Practitioner Family
DX: Z91.09 Other allergy status, other than to drugs and biological substances (principal)
CPT/HCPCS: 36415; 82785; 85025; 86003

== ENCOUNTER 2024-01-31 07:02 | Outpatient (REF) | payer OTHER, SELFPAY ==
--- NOTE | ~2024-01-31 | CT_ITS ---
EXAMINATION: CT CHEST WITHOUT CONTRAST CLINICAL INFORMATION: Nicotine dependence. COMPARISON: CTA chest dated 05/03/2022. TECHNIQUE: Multidetector volumetric CT imaging of the chest was done. Axial MIP volume rendering provided. Sagittal and coronal reformatted images were obtained. This CT examination was performed using dose optimization techniques as appropriate, variously including the following: *Automated exposure control *Adjustment of mA and/or kV according to patient size (this includes techniques or standardized protocols for targeted exams where dose is matched to indication/reason for exam; i.e. 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 LUNGS: There is mild to moderate centrilobular and paraseptal emphysematous change, with an upper lobe predominance. There is biapical pleural and parenchymal scarring. At the medial right base (5:361, 369 and 442) 3 noncalcified 2 mm subpleural nodules are seen. These are stable from 05/03/2022. At the posterolateral left base (5:361), a benign, calcified granuloma is seen. There is no mass, infiltrate or groundglass opacity. There is generalized small airway thickening, with some endobronchial occlusions noted at the posterior bases. The central airways appear patent. MEDIASTINUM: The thyroid is unremarkable. There is no thoracic aortic aneurysm. There are moderate atherosclerotic calcifications of the great vessel origins and thoracic aorta. No mediastinal or hilar lymphadenopathy is seen. CORONARY ARTERY CALCIFICATION: Marked. PLEURA: There is no pleural effusion. No pleural mass or thickening. AXILLA: No lymphadenopathy. UPPER ABDOMEN: There is hepatic steatosis. The adrenal glands are unremarkable. OSSEOUS STRUCTURES: No acute or aggressive osseous finding is seen. CT/CT chest wo IV con IMPRESSION: 1. There are bilateral pulmonary nodules, including 3 noncalcified 2 mm subpleural nodules at the medial right base. These are stable from 05/03/2022. According to the UPDATED 2017 Fleischner Society recommendations, the advised follow-up imaging for solid nodules < 6 mm is: LOW RISK PATIENT: No routine follow-up. HIGH RISK PATIENT: Optional CT at 12 months. 2. There are stable emphysematous changes. 3. There is generalized small airway thickening, and endobronchial occlusions are noted at the posterior bases. These findings can be associated with acute bronchiolitis or reactive airways disease. Please correlate clinically. 4. No thoracic lymphadenopathy or pleural effusion is seen. 5. There is marked coronary atherosclerotic calcification. 6. No aggressive osseous lesion is seen. 7. There is hepatic steatosis. Fleischner guidelines were followed. Electronically signed by: Roberto Carlos Boyd MD 02/13/2024 09:33 AM EDT
== END 2024-01-31 07:03 | disposition home or self-care (01) ==
LOC: HO.CT 07:02
PROVIDERS: Visit Provider Nurse Practitioner Family
DX: F17.210 Nicotine dependence, cigarettes, uncomplicated (principal)
CPT/HCPCS: 71250

== ENCOUNTER 2024-02-09 11:08 | Outpatient (AMB) | payer OTHER, SELFPAY ==
[2024-02-09 11:29] VITALS: BP 132/60; PULSE 88; O2SAT 97; BMI 28.6
--- NOTE | 2024-02-09 11:29 | A.OFFVIS_ITS ---
Vital Signs 02/09/24 11:29 Height 5 ft 1 in Weight 151 lb 2 oz BMI 28.6 BP 132/60 Blood Pressure Location Lt brachial Position Sitting Pulse 88 Pulse Source Pulse Oximeter Pulse Oximetry (%) 97 Oxygen Delivery Method Room Air Intake Visit Reasons: COPD Allergies No Known Allergies Allergy (Verified 02/09/24 11:32) HPI HPI COPD: Details: Rebecca is pleasant 68 year old female, current 1/2 ppd smoker, with approximately 75+ pack-year history, and underlying COPD and hypertension. At the last visit, she reported worsening symptoms of dyspnea on exertion, chest tightness, wheezing and productive cough with clear sputum. She was treated with prednisone and started on Trelegy. She reports significant improvements for 6 weeks and recently started with worsening symptoms again. She denies fevers, chills or sick contacts. Today she presents to review chest CT results, unfortunately these results are not officially read by radiologist. [facility] Medical History Asthma-COPD overlap syndrome Hypertension Surgical History No pertinent past surgical history Family History Other No family history of coronary artery disease Social History Household Members: Spouse Housing: Other Housing Other:: housing Do you presently have visiting nurse or other home services: No Patient Tobacco Use Status: Current someday Tobacco user Tobacco use type: Cigarette Cigarettes Per Day: 10 Second Hand Smoke Exposure: No service: No Current occupational status: employed Review of Systems Const Denies chills, Denies excessive sweating, Denies fever(s), Denies headache(s) and Denies night sweats Eyes Denies dry eyes, Denies irritation and Denies itchy eyes ENT Reports Normal hearing present and Denies headache(s) Card Denies chest pain, Denies chest pain at rest, Denies chest pain with activity, Denies claudication, Denies leg edema, Denies orthopnea and Denies paroxysmal nocturnal dyspnea Resp Denies chest congestion, Denies excessive phlegm production, Denies pain on inspiration, Denies pain with cough and Denies stridor Musc Denies myalgias Neuro Reports Normal hearing present and Denies headache(s) Endo Denies excessive sweating Nir/Lymph Denies lymphadenopathy Aller/Immun Denies itchy eyes and Denies seasonal rhinorrhea Physical Exam Vital Signs: Last Vital Signs Pulse 88 02/09/24 11:29 BP 132/60 02/09/24 11:29 Pulse Ox 97 02/09/24 11:29 Oxygen Delivery Method Room Air 02/09/24 11:29 BMI result Body Mass Index 28.6 Const General: cooperative, healthy appearing, comfortable, no acute distress, well developed and alert Orientation/consciousness: patient oriented x3 Limitations: no limitations HEENT Head: Yes normal to inspection, Yes normocephalic and Yes atraumatic Ears: hearing grossly normal bilaterally and external ears normal Eyes General: appearance normal, both eyes and all related structures Eyelids: Yes eyelids normal Sclerae: sclerae normal EOM: EOMs intact bilaterally Neck Neck: Yes normal visual inspection and Yes no lymphadenopathy Lymphatic: no lymphadenopathy noted Chest Chest palpation & inspection: normal inspection of the chest Resp Other: Faint expiratory wheezes throughout Effort & Inspection: normal respiratory effort, able to speak in complete sentences, no audible wheezes, no cough, no stridor, not tachypneic, no tripod positioning and no use of accessory muscles Cardio Jugular venous distension: no JVD Rate: regular rate Rhythm: regular rhythm Skin Other: warm, dry General skin exam: no rashes or lesions noted Neuro General: patient oriented x3 Cranial nerves: Yes Normal hearing present Cognition (Neuro): normal cognition Gait exam (Neuro): Normal gait present Extrem General: Yes normal to inspection, Yes capillary refill normal, Yes no clubbing, cyanosis or edema and Yes no pedal edema Psych Appearance: grossly normal and well kempt Speech and movement: Normal speech and movement present and Clear speech present Affect: normal affect Attitude: cooperative Thought process: Normal thought process present Thought content: Normal thought content present Insight: Good insight present (Psych) Judgement: Good judgement present (Psych) Assessment & Plan Assessment & Plan (1) COPD (chronic obstructive pulmonary disease): Code(s): J44.9 - Chronic obstructive pulmonary disease, unspecified Category: Medical (2) Nicotine dependence, cigarettes, uncomplicated: Code(s): F17.210 - Nicotine dependence, cigarettes, uncomplicated Category: Medical Plan Will treat exacerbation with prednisone. Will also empirically trial ipratropium nasal spray. Advised to continue to use Trelegy. Will call when CT results available. All questions were answered and patient is in agreement of plan. Will follow-up in 3 months or sooner if needed. Medications: New ipratropium bromide administer into each nostril 2 sprays intranasal BID 30 mL 3RF Refilled prednisone 40 mg (2 x 20 mg) PO DAILY 10 tabs 0RF Coding Level of Care Code Est Pt Level 4 (28386) Diagnoses COPD (chronic obstructive pulmonary disease) J44.9 Nicotine dependence, cigarettes, uncomplicated F17.210
== END 2024-02-09 12:09 | disposition home or self-care (01) ==
PROVIDERS: PCP Family Medicine; Visit Provider Nurse Practitioner Family
DX: J44.9 Chronic obstructive pulmonary disease, unspecified (principal); F17.210 Nicotine dependence, cigarettes, uncomplicated
CPT/HCPCS: 99214

== ENCOUNTER → 2024-02-09 11:08 | Outpatient (BNVA) | payer OTHER, SELFPAY | PROVIDERS: PCP Family Medicine; Visit Provider Nurse Practitioner Family | DX: Z91.09 Other allergy status, other than to drugs and biological substances (principal) ==

== ENCOUNTER 2024-07-16 13:45 | Outpatient (AMB) | payer OTHER, SELFPAY ==
[2024-07-16 13:46] VITALS: BP 126/70; PULSE 100; O2SAT 94; BMI 29.1
--- NOTE | 2024-07-16 13:46 | MHC.OFFVIS ---
Vital Signs 07/16/24 13:46 Height 5 ft 1 in Weight 154 lb BMI 29.1 BP 126/70 Blood Pressure Location Rt brachial Position Sitting Pulse 100 Pulse Source Pulse Oximeter Pulse Oximetry (%) 94 Oxygen Delivery Method Room Air Intake Visit Reasons: COPD Allergies No Known Allergies Allergy (Verified 07/16/24 13:52) Medication List - Last Reconciled 07/16/24 by Marylou Mast LPN albuterol sulfate 90 mcg/actuation 2 puffs inhalation Q4H PRN amlodipine 2.5 mg PO DAILY glwtxyaninr-volgjicgl-hxmpwvfq 200-62.5-25 mcg (Trelegy Ellipta) 1 inh inhalation DAILY ipratropium bromide 2 sprays intranasal BID losartan 1 tab PO BEDTIME HPI HPI COPD: Details: Rebecca is pleasant 69 year old female, current 1/2 ppd smoker, with approximately 75+ pack-year history, and underlying COPD and hypertension. She was started on Trelegy however continues to report significant wheezing, productive cough with clear sputum and dyspnea. She does note having difficulties using Trelegy often feeling as though she is unable to take a full breath to inhale medication. She does not have a nebulizer at home. She denies any visits to urgent care or hospitalizations related to respiratory distress since the last visit. [facility] Medical History Asthma-COPD overlap syndrome Hypertension Surgical History No pertinent past surgical history Family History Other No family history of coronary artery disease Social History Household Members: Spouse Housing: Other Housing Other:: housing Do you presently have visiting nurse or other home services: No Patient Tobacco Use Status: Current someday Tobacco user Tobacco use type: Cigarette Cigarettes Per Day: 10 Second Hand Smoke Exposure: No service: No Current occupational status: employed Review of Systems Const Denies chills, Denies excessive sweating, Denies fever(s), Denies headache(s) and Denies night sweats Eyes Denies dry eyes, Denies irritation and Denies itchy eyes ENT Reports Normal hearing present, Denies headache(s), Denies nasal congestion, Denies nasal discharge, Denies post nasal drip and Denies sore throat Card Denies chest pain, Denies chest pain at rest, Denies chest pain with activity, Denies claudication, Denies leg edema, Reports dyspnea on exertion, Denies orthopnea and Denies paroxysmal nocturnal dyspnea Resp Denies chest congestion, Reports cough, Reports excessive phlegm production, Denies pain on inspiration, Denies pain with cough, Reports dyspnea on exertion, Denies stridor and Reports wheezing Musc Denies myalgias Neuro Reports Normal hearing present and Denies headache(s) Endo Denies excessive sweating Nir/Lymph Denies lymphadenopathy Aller/Immun Denies itchy eyes, Denies seasonal rhinorrhea and Reports wheezing Physical Exam Vital Signs: Last Vital Signs Pulse 100 07/16/24 13:46 BP 126/70 07/16/24 13:46 Pulse Ox 94 07/16/24 13:46 Oxygen Delivery Method Room Air 07/16/24 13:46 BMI result Body Mass Index 29.1 Const General: cooperative, healthy appearing, comfortable, no acute distress, well developed and alert Orientation/consciousness: patient oriented x3 Limitations: no limitations HEENT Head: Yes normal to inspection, Yes normocephalic and Yes atraumatic Ears: hearing grossly normal bilaterally and external ears normal Eyes General: appearance normal, both eyes and all related structures Eyelids: Yes eyelids normal Sclerae: sclerae normal EOM: EOMs intact bilaterally Neck Neck: Yes normal visual inspection and Yes no lymphadenopathy Lymphatic: no lymphadenopathy noted Chest Chest palpation & inspection: normal inspection of the chest Resp Effort & Inspection: normal respiratory effort, able to speak in complete sentences, audible wheezes, Actively coughing, no stridor, not tachypneic, no tripod positioning and no use of accessory muscles Auscultation: no crackles, rhonchi, wheezes and diminished lung sounds Cardio Jugular venous distension: no JVD Rate: regular rate Rhythm: regular rhythm Skin Other: warm, dry General skin exam: no rashes or lesions noted Neuro General: patient oriented x3 Cranial nerves: Yes Normal hearing present Cognition (Neuro): normal cognition Gait exam (Neuro): Normal gait present Extrem General: Yes normal to inspection, Yes capillary refill normal, Yes no clubbing, cyanosis or edema and Yes no pedal edema Psych Appearance: grossly normal and well kempt Speech and movement: Normal speech and movement present and Clear speech present Affect: normal affect Attitude: cooperative Thought process: Normal thought process present Thought content: Normal thought content present Insight: Good insight present (Psych) Judgement: Good judgement present (Psych) Office Procedures Nebulizer Treatment Nebulizer Treatment 27143-Jehzbpayt/MDI RX initial, or Nebulizer Subsequent Treatment Office Meds ipratropium 0.5 mg-albuterol 3 mg (2.5 mg base)/3 mL nebulization soln Performing Provider: Lizbeth Butt NP Performing Location: [facility] Administered by: Marylou Mast LPN on 07/16/24 14:18 Dose Route Admin Location Dispensed Lot Number Expiration Date [facility] 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 COMPARISON: CTA chest dated 05/03/2022. TECHNIQUE: Multidetector volumetric CT imaging of the chest was done. Axial MIP volume rendering provided. Sagittal and coronal reformatted images were obtained. This CT examination was performed using dose optimization techniques as appropriate, variously including the following: *Automated exposure control *Adjustment of mA and/or kV according to patient size (this includes techniques or standardized protocols for targeted exams where dose is matched to indication/reason for exam; i.e. extremities or head) *Use of iterative reconstruction technique DLP: 144 mGy-cm FINDINGS: FUR GRADER: The lungs are symmetrically well-expanded and grossly clear. LUNGS: There is mild to moderate centrilobular and paraseptal emphysematous change, with an upper lobe predominance. There is biapical pleural and parenchymal scarring. At the medial right base (5:361, 369 and 442) 3 noncalcified 2 mm subpleural nodules are seen. These are stable from 05/03/2022. At the posterolateral left base (5:361), a benign, calcified granuloma is seen. There is no mass, infiltrate or groundglass opacity. There is generalized small airway thickening, with some endobronchial occlusions noted at the posterior bases. The central airways appear patent. MEDIASTINUM: The thyroid is unremarkable. There is no thoracic aortic aneurysm. There are moderate atherosclerotic calcifications of the great vessel origins and thoracic aorta. No mediastinal or hilar lymphadenopathy is seen. CORONARY ARTERY CALCIFICATION: Marked. PLEURA: There is no pleural effusion. No pleural mass or thickening. AXILLA: No lymphadenopathy. UPPER ABDOMEN: There is hepatic steatosis. The adrenal glands are unremarkable. OSSEOUS STRUCTURES: No acute or aggressive osseous finding is seen. CT/CT chest wo IV con IMPRESSION: 1. There are bilateral pulmonary nodules, including 3 noncalcified 2 mm subpleural nodules at the medial right base. These are stable from 05/03/2022. According to the UPDATED 2017 Fleischner Society recommendations, the advised follow-up imaging for solid nodules < 6 mm is: LOW RISK PATIENT: No routine follow-up. HIGH RISK PATIENT: Optional CT at 12 months. 2. There are stable emphysematous changes. 3. There is generalized small airway thickening, and endobronchial occlusions are noted at the posterior bases. These findings can be associated with acute bronchiolitis or reactive airways disease. Please correlate clinically. 4. No thoracic lymphadenopathy or pleural effusion is seen. 5. There is marked coronary atherosclerotic calcification. 6. No aggressive osseous lesion is seen. 7. There is hepatic steatosis. Fleischner guidelines were followed. Electronically signed by: Roberto Carlos Boyd MD 02/13/2024 09:33 AM EDT Dictated By: Roberto Carlos Boyd MD Signed By: <Electronically signed by Roberto Carlos Boyd MD in OV> 02/13/24 0933 DD/ 0718 TD/TT: 01/31/[address] Supervisor: DONAVAN Assessment & Plan Assessment & Plan (1) COPD (chronic obstructive pulmonary disease): Code(s): J44.9 - Chronic obstructive pulmonary disease, unspecified Category: Medical (2) Nicotine dependence, cigarettes, uncomplicated: Code(s): F17.210 - Nicotine dependence, cigarettes, uncomplicated Category: Medical (3) Multiple pulmonary nodules: Code(s): R91.8 - Other nonspecific abnormal finding of lung field Category: Medical Plan Rebecca reports suboptimal control on Trelegy with difficulties using device, will switch to Breztri. Patient currently with exacerbation will treat bronchitic symptoms with prednisone and Augmentin. Will also send in nebulizer with DuoNeb PRN. CT chest from 01/2024 revealed emphysematous changes as well as multiple 2 mm subpleural pulmonary nodules, order for repeat chest CT entered at last visit, to be scheduled for 01/2025. All questions were answered and patient is in agreement of plan. Will follow-up in 6- 8 weeks or sooner if needed. Orders: Orders AMB Spirometry Testing Today J44.9 - Chronic obstructive pulmonary disease, unspecified AMB Nebulizer Treatment Today J44.9 - Chronic obstructive pulmonary disease, unspecified Medications: New amoxicillin-pot clavulanate 875-125 mg 1 tab PO Q12H 20 tabs 0RF prednisone see taper instructions; 40 mg Daily x3 days, 30 mg daily x3 days, 20 mg daily x3 days, 10 mg daily x3 days 10 mg PO DIRECTED 30 tabs 0RF dcxxexbktk-trqelemj-flkdhrsyox 160-9-4.8 mcg/actuation (Breztri Aerosphere) 2 inhalations inhalation BID 1 ea 6RF ipratropium-albuterol 0.5 mg-3 mg(2.5 mg base)/3 mL 3 mL inhalation Q6H PRN 180 mL 3RF wheezing Discontinued hjppslumqym-krlpwhvop-yzgcutzq 200-62.5-25 mcg (Trelegy Ellipta) Discontinued Reason: Patient Completed Course 1 inh inhalation DAILY 60 ea 6RF Coding Level of Care Code Est Pt Level 4 (99698) Diagnoses COPD (chronic obstructive pulmonary disease) J44.9 Nicotine dependence, cigarettes, uncomplicated F17.210 Multiple pulmonary nodules R91.8 CPT Codes Nebulizer Treatment - Nebulizer Treatment, initial or subsequent: 09697-Rbancewxs/MDI RX initial, or Nebulizer Subsequent Treatment ([id number])
--- NOTE | 2024-07-16 13:46 | MHC.OFFVIS ---
Vital Signs 07/16/24 13:46 Height 5 ft 1 in Weight 154 lb BMI 29.1 BP 126/70 Blood Pressure Location Rt brachial Position Sitting Pulse 100 Pulse Source Pulse Oximeter Pulse Oximetry (%) 94 Oxygen Delivery Method Room Air Intake Visit Reasons: COPD Yeast Culture Operator Required: No Chromosomal Disorders Counselor: Chromosomal Disorders Counselor offered & declined Accompanied by: Self / Same As Patient Allergies No Known Allergies Allergy (Verified 07/16/24 13:52) Medication List - Last Reconciled 07/16/24 by Marylou Mast LPN albuterol sulfate 90 mcg/actuation 2 puffs inhalation Q4H PRN amlodipine 2.5 mg PO DAILY jwiflftleuu-hcxgfrgqa-fqzekcxm 200-62.5-25 mcg (Trelegy Ellipta) 1 inh inhalation DAILY ipratropium bromide 2 sprays intranasal BID losartan 1 tab PO BEDTIME PFSH Medical History Asthma-COPD overlap syndrome Hypertension Surgical History No pertinent past surgical history Family History Other No family history of coronary artery disease Social History Household Members: Spouse Housing: Other Housing Other:: housing Do you presently have visiting nurse or other home services: No Patient Tobacco Use Status: Current someday Tobacco user Tobacco use type: Cigarette Cigarettes Per Day: 10 Second Hand Smoke Exposure: No service: No 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
--- OUTSIDE RECORDS SUMMARY | 2024-07-16 17:24 | XMS_ITS | Data Portability ---
Author Organization [facility], [address] Address [address] [place] [address] Assessment No assessment recorded. Plan of Treatment Reminders Order Date Submit Date Provider Last Modified By Organization Details Last Modified Time Details Appointments None recorded. Lab rapid flu (A+B) 2021 022 [email or web address] [facility], [address] [place] [address], [phone], 14:13:08 rapid SARS CoV 2 Ag, QL IA, respiratory specimen 2021 [address] _[facility], [address] [place] [address], [phone], 14:13:50 Referral None recorded. Procedures None recorded. Surgeries None recorded. Imaging None recorded. Medication Orders None recorded. Patient TargetsNo targets recorded. Patient InstructionsNo instructions recorded. Reason for Referral None Reported. Results Created Date Observation Date Name Description Value Unit Range Abnormal Flag Note LastModifiedBy Organization Detail LastModifiedTime 05/11/2005/11/2022 rapid SARS CoV 2 Ag, QL IA, respi rator y speci men Unknown Analyte Normal =Negat celestino Not Available [facility] [address], [address], 05/11/2022 13:56:50 05/11/20 22 05/11/2022 rapid SARS CoV 2 Ag, QL IA, respi rator y speci men Unknown Analyte negati ve Not Available [facility] [address] [place], [address], 05/11/2022 13:56:50 05/11/20 22 05/11/2022 rapid flu (A+B) Unknown Analyte Normal = Negati ve Not Available [facility] [address] [place], [address], 05/11/2022 13:56:44 05/11/20 22 05/11/2022 rapid flu (A+B) Unknown Analyte negati ve Not Available [facility] [address] [place], [address], 05/11/2022 13:56:44 05/11/20 22 05/11/2022 rapid flu (A+B) Unknown Analyte Normal = Negati ve Not Available [facility] [address] [place], [address], 05/11/2022 13:56:44 05/11/20 22 05/11/2022 rapid flu (A+B) Unknown Analyte negati ve Not Available [facility] [address] [place], [address], 05/11/2022 13:56:44 Result Notes None recorded. Problems Name Problem SNOMED Code Status Onset Date Resolution Date Notes Provider Name and Address Organization Details Recorded Time Asthma 309072369 Active 2021 Ruthie Michelle null, [place] - [facility] 13:55:18 Chronic obstructive pulmonary disease 85080212 Active 2021 Ruthie Michelle null, [place] - [facility] 13:55:45 Hypertensive disorder 35851083 Active 2021 Ruthie Michelle null, [place] - [facility] 13:55:51 Problem Notes None recorded. Medical Equipment None Reported. Allergies No known drug allergies Medications Name Sig Start Date Stop Date Status Note LastModified by Organization Details LastModified Time doxycycline hyclate 100 mg capsule Take 1 capsule (oral) 2 times per day for 7 days for infection 05/11 completed Not Available Not Available Not Available azithromyci n 250 mg tablet TAKE 2 TABLETS BY MOUTH TODAY THEN TAKE 1 TABLET DAILY FOR THE NEXT 4 DAYS 05/11 completed Not Available Not Available Not Available prednisone 20 mg tablet TAKE 2 TABLETS BY MOUTH ONCE DAILY FOR 5 DAYS WITH food 05/11 completed Not Available Not Available Not Available methylpredn isolone 4 mg tablets in a dose pack TAKE BY MOUTH directed ON package 05/11 completed Not Available Not Available Not Available albuterol sulfate HFA 90 mcg/actuati on aerosol inhaler inhale 2 PUFFS BY MOUTH every 4 hours NEEDED FOR dyspnea active Not Available Not Available No t Available losartan 100 mg tablet TAKE 1 TABLET BY MOUTH DAILY active Not Available Not Available No t Available Spiriva with HandiHaler 18 mcg and inhalation capsules PLACE 1 CAPSULE INTO SPIRIVA DEVICE AND INHALE BY MOUTH DAILY 05/11 completed Not Available Not Available Not Available Mucinex 1,200 mg tablet, extended release TAKE 1 TABLET BY MOUTH TWICE DAILY NEEDED FOR 14 DAYS 05/11 completed Not Available Not Available Not Available Vitals Date Recorded Body height Body mass index (BMI) Body weight Oxygen saturation Oxygen saturation in Arterial blood by Pulse oximetry Inhaled oxygen flow rate Heart rate Respiratory rate Body temperature Systolic blood pressure Diastolic blood pressure Provider Name and Address Organization Details Last Updated DateTime 154.94 cm 27.4 kg/m2 37383.8 9 g 96 % 96 % 4 L/min 85 /min 18 /min 97.7 [degF] 173 mm[Hg] 82 mm[Hg] Ruthie CAMERON [employer] 13:54:02 Social History Question Answer Notes LastModified by Organizat ion Details LastModified Time Tobacco Smoking Status Former Smoker [facility] 05/11/2022 13:56:21 What Is Your Level Of Alcohol Consumption? Moderate Information not available 05/11/2022 How Many Times Per Week Do You Consume Alcohol? 3-4 Times Per Week Information not available 05/11/2022 When Did You Quit Smoking? 1-5yearssince lastcigarette Information not available 05/11/2022 Have You Had Direct Contact, Or Contact During Intimacy, With Monkeypox Rash, Scabs, Or Body Fluids From A Person With Monkeypox? No Information not available 05/11/2022 Do You Use Any Illicit Or Recreational Drugs? No Information not available 05/11/2022 Have You Recently Traveled Abroad? No Information not available 05/11/2022 Sex: Unknown Functional Status None recorded. Mental Status None recorded. Family History Relationship Description Onset Age of this Age Resolved Age Notes LastModified by Organization Details LastModified Time Father No current problems or disability Not available 05/11 13:55:54 Mother No current problems or disability Not available 05/11 13:55:54 Medical History No medical history recorded. Gynecological HistoryNo gynecological history recorded. Obstetrics History GPAL:G 0 P 0 0 0 0 Past Encounters Encounter ID Performer Location Encounter Start Date Encounter Closed Date Diagnosis/Indication Diagnosis SNOMED-CT Code Diagnosis ICD10 Code Diagnosis Note [id number] [address] [address] 10/11/2018 11:46:48 10/11/2018 13:30:55 [id number] [address] [address] 03/22/2021 11:50:58 03/22/2021 13:51:14 [id number] [address] [address] 03/18/2022 09:45:31 03/18/2022 11:33:32 [id number] NISHA TRINIDAD [address] [address] [place] [address] 05/11/2022 13:43:34 05/11/2022 14:17:37 Hypoxia 114319386 R09.02 Patient is on 4L of oxygen in clinic. EMS was called and she is stable - awaiting transport at this time. Agrees to go via EMS. Acute exac erbation of chronic obstructive pulmonary disease 437554789 J44.1 Health Concerns Section Related Observation LastModified by Organization Detai ls LastModified Time None Recorded Concern Status LastModified by Organization Details LastModified Time None Recorded Advance Directives Directive None Recorded Payers Encounter Date Sequence Insurance Name Policy Number Policy Jo Covered Member ID Jo Member ID Guarantor Name 03/18/2022 1 [facility] - MEDICARE PREFERRED (MEDICARE REPLACEMENT HMO) [employer] Juan Eng [id number] Juan Eng 05/11/2022 1 MEDICARE B-[place]: [facility] [employer] Juan Eng [id number] Juan Eng Notes Date Note Type Note Provider Name and Address Organization Details Recorded Time 05/11/2022 text/html Juan is a 67 yo F with PMH COPD and asthma here for acute exacerbation onset 1 week. Came in with SOB and wheezing. O2 sat 77%. Is not on oxygen at home normally. Was immediately started on 4 liters of oxygen and O2 was correctly to 96-97% with 4L NC. Pt refusing ER transfer via EMS at first noting she just wants an antibiotic and nebulizer treatment - finally was able to convince her. Is stable and awaiting transport. EMS was called at 2:05PM and pt is stable at this time. Nurse is at her side. NISHA GARCIA [facility] [place], [address], [place] - [facility] 05/11/2022 16:07:39 OBGyn Episode No OBEpisode recorded.
== END 2024-07-16 14:24 | disposition home or self-care (01) ==
PROVIDERS: PCP Family Medicine; Visit Provider Nurse Practitioner Family
DX: J44.9 Chronic obstructive pulmonary disease, unspecified (principal); F17.210 Nicotine dependence, cigarettes, uncomplicated; R91.8 Other nonspecific abnormal finding of lung field
CPT/HCPCS: 99214

== ENCOUNTER → 2024-07-16 13:45 | Outpatient (BNVA) | payer OTHER, SELFPAY | PROVIDERS: PCP Family Medicine; Visit Provider Nurse Practitioner Family | DX: J44.9 Chronic obstructive pulmonary disease, unspecified (principal); R91.8 Other nonspecific abnormal finding of lung field; F17.210 Nicotine dependence, cigarettes, uncomplicated | CPT/HCPCS: 94640 ==

== ENCOUNTER 2024-09-10 10:54 | Outpatient (AMB) | payer OTHER, SELFPAY ==
[2024-09-10 10:57] VITALS: PULSE 102; O2SAT 93; BMI 28.3
--- NOTE | 2024-09-10 10:57 | A.OFFVIS_ITS ---
Vital Signs 09/10/24 10:57 Height 5 ft 1 in Weight 150 lb BMI 28.3 Pulse 102 H Pulse Source Pulse Oximeter Pulse Oximetry (%) 93 Oxygen Delivery Method Room Air Intake Visit Reasons: COPD Commercial Account Executive Required: No Post Tensioning Ironworker: Post Tensioning Ironworker offered & declined Accompanied by: Self / Same As Patient Allergies Penicillins Adverse Reaction (Severe, Verified 09/10/24 11:10) severe yeast infection Medication List - Last Reconciled 09/10/24 by Marylou Mast LPN albuterol sulfate 90 mcg/actuation 2 puffs inhalation Q4H PRN amlodipine 2.5 mg PO DAILY yylaniwdfc-gkijmbzh-hylualkopi 160-9-4.8 mcg/actuation (Breztri Aerosphere) 2 inhalations inhalation BID ipratropium bromide 2 sprays intranasal BID ipratropium-albuterol 0.5 mg-3 mg(2.5 mg base)/3 mL 3 mL inhalation Q6H PRN losartan 1 tab PO BEDTIME HPI HPI COPD: Details: Rebecca is pleasant 69 year old female, current 1/2 ppd smoker, with approximately 75+ pack-year history, and underlying COPD and hypertension. She was switched from Trelegy to Breztri as she was having difficulties using and unsure of effectiveness. Unfortunately, she had suboptimal response to Breztri and has been maintained on Trelegy as she feels it provided better control. She also has DuoNeb however using infrequently. At the last visit she was prescribed Augmentin for peristent bronchitic symptoms, developing significant yeast infection, continuing to have symptoms despite OTC treatment. She reports improvements in cough but continues with wheezing and chest tightness, feels dyspnea is at baseline. She also continues to smoke and is working towards smoking cessation. [facility] Medical History Asthma-COPD overlap syndrome Hypertension Surgical History No pertinent past surgical history Family History Other No family history of coronary artery disease Social History Household Members: Spouse Housing: Other Housing Other:: housing Do you presently have visiting nurse or other home services: No Patient Tobacco Use Status: Current someday Tobacco user Tobacco use type: Cigarette Cigarettes Per Day: 10 Second Hand Smoke Exposure: No service: No Current occupational status: employed Review of Systems Const Denies chills, Denies excessive sweating, Denies fever(s), Denies headache(s) and Denies night sweats Eyes Denies dry eyes, Denies irritation and Denies itchy eyes ENT Reports Normal hearing present and Denies headache(s) Card Denies chest pain, Denies chest pain at rest, Denies chest pain with activity, Denies claudication, Denies leg edema, Reports dyspnea on exertion, Denies orthopnea and Denies paroxysmal nocturnal dyspnea Resp Denies chest congestion, Denies pain on inspiration, Denies pain with cough, Reports dyspnea on exertion, Denies stridor and Reports wheezing Musc Denies myalgias Neuro Reports Normal hearing present and Denies headache(s) Endo Denies excessive sweating Nir/Lymph Denies lymphadenopathy Aller/Immun Denies itchy eyes, Denies seasonal rhinorrhea and Reports wheezing Physical Exam Vital Signs: Last Vital Signs Pulse 102 H 09/10/24 10:57 Pulse Ox 93 09/10/24 10:57 Oxygen Delivery Method Room Air 09/10/24 10:57 BMI result Body Mass Index 28.3 Const General: cooperative, healthy appearing, comfortable, no acute distress, well developed and alert Orientation/consciousness: patient oriented x3 Limitations: no limitations HEENT Head: Yes normal to inspection, Yes normocephalic and Yes atraumatic Ears: hearing grossly normal bilaterally and external ears normal Eyes General: appearance normal, both eyes and all related structures Eyelids: Yes eyelids normal Sclerae: sclerae normal EOM: EOMs intact bilaterally Neck Neck: Yes normal visual inspection and Yes no lymphadenopathy Lymphatic: no lymphadenopathy noted Chest Chest palpation & inspection: normal inspection of the chest Resp Effort & Inspection: normal respiratory effort, able to speak in complete sentences, no audible wheezes, no cough, no stridor, not tachypneic, no tripod positioning and no use of accessory muscles Auscultation: no crackles, no rales, no rhonchi, wheezes (faint) scattered wheezes and diminished lung sounds Cardio Jugular venous distension: no JVD Rate: regular rate Rhythm: regular rhythm Skin Other: warm, dry General skin exam: no rashes or lesions noted Neuro General: patient oriented x3 Cranial nerves: Yes Normal hearing present Cognition (Neuro): normal cognition Gait exam (Neuro): Normal gait present Extrem General: Yes normal to inspection, Yes capillary refill normal, Yes no clubbing, cyanosis or edema and Yes no pedal edema Psych Appearance: grossly normal and well kempt Speech and movement: Normal speech and movement present and Clear speech present Affect: normal affect Attitude: cooperative Thought process: Normal thought process present Thought content: Normal thought content present Insight: Good insight present (Psych) Judgement: Good judgement present (Psych) Assessment & Plan Assessment & Plan (1) COPD (chronic obstructive pulmonary disease): Code(s): J44.9 - Chronic obstructive pulmonary disease, unspecified Category: Medical (2) Nicotine dependence, cigarettes, uncomplicated: Code(s): F17.210 - Nicotine dependence, cigarettes, uncomplicated Category: Medical (3) Multiple pulmonary nodules: Code(s): R91.8 - Other nonspecific abnormal finding of lung field Category: Medical Plan Encouraged Rebecca to increase DuoNeb BID QD for the next few days and if no improvement will send prednisone. Will send fluconazole for continued yeast infection. Continue Trelegy. CT chest from 01/2024 revealed emphysematous changes as well as multiple 2 mm subpleural pulmonary nodules, order for repeat chest CT entered at last visit, to be scheduled for 01/2025. All questions were answered and patient is in agreement of plan. Will follow-up in 6- 8 weeks or sooner if needed. Medications: New fluconazole may repeat second dose 72 hrs after first dose if symptoms persist 150 mg PO Q3D 2 tabs 0RF jqesckyxxwl-ciutmugsi-votzzcie 200-62.5-25 mcg (Trelegy Ellipta) 1 inh inhalation DAILY 60 ea 3RF Discontinued fkaubeugaj-nwwugvrt-clhaacywph 160-9-4.8 mcg/actuation (Breztri Aerosphere) Discontinued Reason: Patient Completed Course 2 inhalations inhalation BID 1 ea 6RF Coding Level of Care Code Est Pt Level 4 (74307) Diagnoses COPD (chronic obstructive pulmonary disease) J44.9 Nicotine dependence, cigarettes, uncomplicated F17.210 Multiple pulmonary nodules R91.8
--- OUTSIDE RECORDS SUMMARY | 2024-09-10 12:37 | XMS_ITS | Data Portability ---
Author Organization NISHA Villarreal [facility], [address] Address [address] [place] [address] Assessment No assessment recorded. Plan of Treatment Reminders Order Date Submit Date Provider Last Modified By Organization Details Last Modified Time Details Appointments None recorded. Lab rapid flu (A+B) 2021 022 sghohesta [email or web address] _[facility], [address] [place] [address], [id number], 14:13:08 rapid SARS CoV 2 Ag, QL IA, respiratory specimen 2021 022 LORENE _[facility], [address] [place] [address], [id number], 14:13:50 Referral None recorded. Procedures None recorded. [...] Unknown Analyte Normal =Negat celestino Not Available [facility] [address], [address], 05/11/2022 13:56:50 05/11/20 22 05/11/2022 rapid SARS CoV 2 Ag, QL IA, respi rator y speci men Unknown Analyte negati ve Not Available [facility] [address] [place], [address], 05/11/2022 13:56:50 05/11/20 22 05/11/2022 rapid flu (A+B) Unknown Analyte Normal = Negati ve Not Available [facility] [address] [place], [address], 05/11/2022 13:56:44 05/11/20 22 05/11/2022 rapid flu (A+B) Unknown Analyte negati ve Not [facility] [address] [place], [address], 05/11/2022 13:56:44 05/11/20 22 05/11/2022 rapid flu (A+B) Unknown Analyte Normal = Negati ve Not [facility] [address] [place], [address], 05/11/2022 13:56:44 05/11/20 22 05/11/2022 rapid flu (A+B) Unknown Analyte negati ve Not [facility] [address] [place], [address], 05/11/2022 13:56:44 Result Notes None recorded. Problems Name Problem SNOMED Code Status Onset Date Resolution Date Notes Provider Name and Address Organization Details Recorded Time Asthma 697446666 Active 2021 Ruthie Liberty null, [place] - [facility] 13:55:18 Chronic obstructive pulmonary disease 32504944 Active 2021 Ruthie Liberty null, [place] - [facility] 13:55:45 Hypertensive disorder 46560739 Active 2021 Ruthie Michelle null, PA - [...] Last Updated DateTime 154.94 cm 27.4 kg/m2 05151.8 9 g 96 % 96 % 4 L/min 85 /min 18 /min 97.7 [degF] 173 mm[Hg] 82 mm[Hg] Ruthie CAMERON [place] 13:54:02 Social History Question Answer Notes LastModified by Organizat ion Details LastModified Time Tobacco Smoking Status Former Smoker [facility]HA [facility] 05/11/2022 13:56:21 What Is Your Level [...] SNOMED-CT Code Diagnosis ICD10 Code Diagnosis Note [id number] [address] [address] 10/11/2018 11:46:48 10/11/2018 13:30:55 [id number] [address] [address] 03/22/2021 11:50:58 03/22/2021 13:51:14 [id number] [address] [address] 03/18/2022 09:45:31 03/18/2022 11:33:32 [id number] NISHA TRINIDAD [address] [address] [place] [address] 05/11/2022 13:43:34 05/11/2022 14:17:37 Hypoxia 047146558 R09.02 Patient is on 4L of oxygen in clinic. EMS was called and she is stable - awaiting transport at this time. Agrees to go via EMS. Acute exac erbation of chronic obstructive pulmonary disease 416120730 J44.1 Health Concerns Section Related Observation LastModified by Organization Detai ls LastModified Time None Recorded Concern Status LastModified by Organization Details LastModified Time None Recorded Advance Directives Directive None Recorded Payers Encounter Date Sequence Insurance Name Policy Number Policy Jo Covered Member ID Jo Member ID Guarantor Name 03/18/2022 1 [facility] - MEDICARE PREFERRED (MEDICARE REPLACEMENT HMO) [employer] Juan Eng [id number] 1 Juan Eng 05/11/2022 1 MEDICARE B-[place]: [facility] [employer] Juan Eng [id number] Juan Eng Notes Date Note Type [...] Nurse is at her side. NISHA GARCIA [facility] [place], [address], [place] - [facility] 05/11/2022 16:07:39 OBGyn Episode No OBEpisode recorded.
== END 2024-09-10 11:33 | disposition home or self-care (01) ==
LOC: HO.HPSW 10:54
PROVIDERS: PCP Family Medicine; Visit Provider Nurse Practitioner Family
DX: J44.9 Chronic obstructive pulmonary disease, unspecified (principal); F17.210 Nicotine dependence, cigarettes, uncomplicated; R91.8 Other nonspecific abnormal finding of lung field
CPT/HCPCS: 99214

== ENCOUNTER 2024-11-08 10:56 | Outpatient (AMB) | payer OTHER, SELFPAY ==
--- NOTE | 2024-11-08 10:40 | A.OFFVIS_ITS ---
Vital Signs 11/08/24 11:00 Height 5 ft 1 in Weight 152 lb BMI 28.7 BP 132/68 Blood Pressure Location Rt brachial Position Sitting Pulse 77 Pulse Source Pulse Oximeter Pulse Oximetry (%) 99 Oxygen Delivery Method Room Air Intake Visit Reasons: COPD Allergies Penicillins Adverse Reaction (Severe, Verified 11/08/24 11:04) severe yeast infection HPI HPI COPD: Details: Rebecca is pleasant 69 year old female, current 1/2 ppd smoker, with approximately 75+ pack-year history, with underlying COPD and hypertension. She has been moderately controlled using Trelegy and DuoNeb. She continues to report persistent wheezing, dyspnea and cough with clear sputum. She does admit that she rarely using DuoNeb and continues to smoke. She denies chest congestion, fevers, chills or sick contacts. [facility] Medical History Asthma-COPD overlap syndrome Hypertension Surgical History No pertinent past surgical history Family History Other No family history of coronary artery disease Social History Household Members: Spouse Housing: Other Housing Other:: housing Do you presently have visiting nurse or other home services: No Patient Tobacco Use Status: Current someday Tobacco user Tobacco use type: Cigarette Cigarettes Per Day: 10 Second Hand Smoke Exposure: No service: No Current occupational status: employed Review of Systems Const Denies chills, Denies excessive sweating, Denies fever(s), Denies headache(s) and Denies night sweats Eyes Denies dry eyes, Denies irritation and Denies itchy eyes ENT Reports Normal hearing present and Denies headache(s) Card Denies chest pain, Denies chest pain at rest, Denies chest pain with activity, Denies claudication, Denies leg edema, Reports dyspnea on exertion, Denies orthopnea and Denies paroxysmal nocturnal dyspnea Resp Denies chest congestion, Denies pain on inspiration, Denies pain with cough, Reports dyspnea on exertion, Denies stridor and Reports wheezing Musc Denies myalgias Neuro Reports Normal hearing present and Denies headache(s) Endo Denies excessive sweating Nir/Lymph Denies lymphadenopathy Aller/Immun Denies itchy eyes, Denies seasonal rhinorrhea and Reports wheezing Physical Exam Vital Signs: Last Vital Signs Pulse 77 11/08/24 11:00 BP 132/68 11/08/24 11:00 Pulse Ox 99 11/08/24 11:00 Oxygen Delivery Method Room Air 11/08/24 11:00 BMI result Body Mass Index 28.7 Const General: cooperative, healthy appearing, comfortable, no acute distress, well developed and alert Orientation/consciousness: patient oriented x3 Limitations: no limitations HEENT Head: Yes normal to inspection, Yes normocephalic and Yes atraumatic Ears: hearing grossly normal bilaterally and external ears normal Eyes General: appearance normal, both eyes and all related structures Eyelids: Yes eyelids normal Sclerae: sclerae normal EOM: EOMs intact bilaterally Neck Neck: Yes normal visual inspection and Yes no lymphadenopathy Lymphatic: no lymphadenopathy noted Chest Chest palpation & inspection: normal inspection of the chest Resp Other: moderate wheezing initially improved with Duoneb Effort & Inspection: normal respiratory effort, able to speak in complete sentences, no cough, no stridor, not tachypneic, no tripod positioning and no use of accessory muscles Auscultation: no crackles, no rales, no rhonchi, wheezes (faint) scattered wheezes and diminished lung sounds Cardio Jugular venous distension: no JVD Rate: regular rate Rhythm: regular rhythm Skin Other: warm, dry General skin exam: no rashes or lesions noted Neuro General: patient oriented x3 Cranial nerves: Yes Normal hearing present Cognition (Neuro): normal cognition Gait exam (Neuro): Normal gait present Extrem General: Yes normal to inspection, Yes capillary refill normal, Yes no clubbing, cyanosis or edema and Yes no pedal edema Psych Appearance: grossly normal and well kempt Speech and movement: Normal speech and movement present and Clear speech present Affect: normal affect Attitude: cooperative Thought process: Normal thought process present Thought content: Normal thought content present Insight: Good insight present (Psych) Judgement: Good judgement present (Psych) Assessment & Plan Assessment & Plan (1) COPD (chronic obstructive pulmonary disease): Code(s): J44.9 - Chronic obstructive pulmonary disease, unspecified Category: Medical (2) Nicotine dependence, cigarettes, uncomplicated: Code(s): F17.210 - Nicotine dependence, cigarettes, uncomplicated Category: Medical (3) Multiple pulmonary nodules: Code(s): R91.8 - Other nonspecific abnormal finding of lung field Category: Medical Plan Encouraged Rebecca to increase DuoNeb and send in prednisone. Will also send flutter valve to be used after nebulized therapy. She is aware to call if symptoms do not improve and seek emergent care if symptoms worsen. CT chest from 01/2024 revealed emphysematous changes as well as multiple 2 mm subpleural pulmonary nodules, order for repeat chest CT and to be scheduled for 01/2025. All questions were answered and patient is in agreement of plan. Will follow-up in 6- 8 weeks or sooner if needed. Medications: New prednisone see taper instructions; 40 mg Daily x3 days, 30 mg daily x3 days, 20 mg daily x3 days, 10 mg daily x3 days 10 mg PO DIRECTED 30 tabs 0RF Coding Level of Care Code Est Pt Level 4 (98331) Diagnoses COPD (chronic obstructive pulmonary disease) J44.9 Nicotine dependence, cigarettes, uncomplicated F17.210 Multiple pulmonary nodules R91.8
[2024-11-08 11:00] VITALS: BP 132/68; PULSE 77; O2SAT 99; BMI 28.7
--- OUTSIDE RECORDS SUMMARY | 2024-11-08 12:05 | XMS_ITS | Data Portability ---
Author Organization N[facility]HA Villarreal [facility], [address] Address [address] [place] [address] Assessment No assessment recorded. Plan of Treatment Reminders Order Date Submit Date Provider Last Modified By Organization Details Last Modified Time Details Appointments None recorded. Lab rapid flu (A+B) 2021 022 sghohesta [email or web address] _[facility], [address] [place] [address], [id number], 14:13:08 rapid SARS CoV 2 Ag, QL IA, respiratory specimen 2021 022 LORENE _[facility], [address] [place] [address], [address], 14:13:50 Referral None recorded. Procedures None recorded. [...] Unknown Analyte Normal =Negat celestino Not Available [address], [address], 05/11/2022 13:56:50 05/11/20 22 05/11/2022 rapid SARS CoV 2 Ag, QL IA, respi rator y speci men Unknown Analyte negati ve Not Available [facility] [address] [place], [address], 05/11/2022 13:56:50 05/11/20 22 05/11/2022 rapid flu (A+B) Unknown Analyte Normal = Negati ve Not Available [facility] [address] [place], [address], 05/11/2022 13:56:44 05/11/20 22 05/11/2022 rapid flu (A+B) Unknown Analyte negati ve Not Available [facility] [address] [place], [address], 05/11/2022 13:56:44 05/11/20 22 05/11/2022 rapid flu (A+B) Unknown Analyte Normal = Negati ve Not Available [facility] [place] [address] [place], [address], 05/11/2022 13:56:44 05/11/20 22 05/11/2022 rapid flu (A+B) Unknown Analyte negati ve Not Available [facility] [place] [facility] [place] [address] [place], [address], 05/11/2022 13:56:44 Result Notes None recorded. Problems Name Problem SNOMED Code Status Onset Date Resolution Date Notes Provider Name and Address Organization Details Recorded Time Asthma 577846946 Active 2021 Ruthie Michelle null, PA - [facility] 13:55:18 Chronic obstructive pulmonary disease 83605922 Active 2021 Ruthie Michelle null, PA - [facility] 13:55:45 Hypertensive disorder 92339700 Active 2021 Ruthie Michelle null, PA - [...] Last Updated DateTime 154.94 cm 27.4 kg/m2 65164.8 9 g 96 % 96 % 4 L/min 85 /min 18 /min 97.7 [degF] 173 mm[Hg] 82 mm[Hg] Ruthie CAMERON - [facility] 13:54:02 Social History Question Answer Notes LastModified by Organizat ion Details LastModified Time Tobacco Smoking Status Former Smoker NISHA Bolton [facility] 05/11/2022 13:56:21 When Did You Quit Smoking? 1-5yearssinc elastcigaret te Information not available 05/11/2022 Have You Had Direct Contact, Or Contact During Intimacy, With Monkeypox Rash, Scabs, Or Body Fluids From A Person With Monkeypox? No Information not available 05/11/2022 Have You Recently Traveled Abroad? No Information not available 05/11/2022 Sex: Unknown Functional Status Question Answer Note LastModified by Organizat ion Details LastModified Time How many times per week do you consume alcohol? 3-4 times per week Information not available 05/11/2022 Do you use any illicit or recreational drugs? No Information not available 05/11/2022 What is your level of alcohol consumption? Moderate Information not available 05/11/2022 Mental Status None recorded. Family History Relationship [...] SNOMED-CT Code Diagnosis ICD10 Code Diagnosis Note [id number] [facility] [address] [address] 10/11/2018 11:46:48 10/11/2018 13:30:55 [id number] [facility] [address] [address] 03/22/2021 11:50:58 03/22/2021 13:51:14 [id number] [facility] [address] [address] [place] [address] 03/18/2022 09:45:31 03/18/2022 11:33:32 [id number] NISHA TRINIDAD [facility] [address] [place] [address] 05/11/2022 13:43:34 05/11/2022 14:17:37 Hypoxia 755071360 R09.02 Patient is on 4L of oxygen in clinic. EMS was called and she is stable - awaiting transport at this time. Agrees to go via EMS. Acute exac erbation of chronic obstructive pulmonary disease 882422268 J44.1 Health Concerns Section Related Observation LastModified by Organization Detai ls LastModified Time None Recorded Concern Status LastModified by Organization Details LastModified Time None Recorded Advance Directives Directive None Recorded Payers Insurance Date Sequence Insurance Name Policy Number Policy Jo Covered Member ID Jo Member ID Guarantor Name 05/11/2022 1 [facility] - MEDICARE PREFERRED (MEDICARE REPLACEMENT HMO) [employer] Juan Eng [id number] Juan Eng 05/11/2022 1 [place] [employer] Juan Eng [id number] Juan Misrtyo 05/11/2022 PROMPT PAY Li ndalefernando Eng 05/11/2022 PROMPT PAY Li ndalee Eng Notes Date Note Type Note Provider [...] this time. Nurse is at her side. ALMA [place], NISHA [address] [place], [address], [place] - [facility] 05/11/2022 16:07:39 OBGyn Episode No OBEpisode recorded.
== END 2024-11-08 11:46 | disposition home or self-care (01) ==
LOC: HO.HPSW 10:57
PROVIDERS: PCP Family Medicine; Visit Provider Nurse Practitioner Family
DX: J44.9 Chronic obstructive pulmonary disease, unspecified (principal); F17.210 Nicotine dependence, cigarettes, uncomplicated; R91.8 Other nonspecific abnormal finding of lung field
CPT/HCPCS: 99214

== ENCOUNTER → 2024-11-08 10:56 | Outpatient (BNVA) | payer OTHER, SELFPAY | PROVIDERS: PCP Family Medicine; Visit Provider Nurse Practitioner Family | DX: J44.9 Chronic obstructive pulmonary disease, unspecified (principal); Z91.09 Other allergy status, other than to drugs and biological substances; R91.8 Other nonspecific abnormal finding of lung field; F17.210 Nicotine dependence, cigarettes, uncomplicated | CPT/HCPCS: 94640 ==

== ENCOUNTER 2025-01-22 07:35 | Outpatient (REF) | payer MEDICARE, SELFPAY ==
--- NOTE | ~2025-01-22 | CT_ITS ---
CLINICAL HISTORY: R91.8 - Other nonspecific abnormal finding of lung field CT chest without contrast Comparison: CT/REG/SR - CT CHEST WO IV CON - 01/31/24 07:18 EDT Findings: Emphysematous changes throughout the lungs are again identified. Unchanged pulmonary nodules. No new pulmonary nodules are identified. Biapical pleural/parenchymal scarring is unchanged. No focal areas of consolidation. No pleural effusion pneumothorax. No enlarged lymph nodes. Dense coronary artery calcification. Ztvh-fy-tlzeznzx calcification of the thoracic aorta. No free fluid or free air within the upper abdomen. No acute bony abnormality. IMPRESSION: 1. No acute findings. 2. Emphysematous changes with unchanged pulmonary nodules. 3. Dense coronary artery calcification. Preventative cardiology consultation should be considered. This document has been electronically signed by: Heriberto Devries MD on 01/22/2025 09:15:25
== END 2025-01-22 07:36 | disposition home or self-care (01) ==
LOC: HO.CT 07:35
PROVIDERS: PCP Family Medicine; Visit Provider Nurse Practitioner Family
DX: R91.8 Other nonspecific abnormal finding of lung field (principal)
CPT/HCPCS: 71250

== ENCOUNTER → 2025-01-22 07:37 | Outpatient (BNV) | payer MEDICARE, SELFPAY | PROVIDERS: PCP Family Medicine; Visit Provider Radiology Diagnostic Radiology | DX: R91.8 Other nonspecific abnormal finding of lung field (principal) | CPT/HCPCS: 71250 ==

== ENCOUNTER 2025-02-14 13:00 | Outpatient (AMB) | payer MEDICARE, SELFPAY ==
--- NOTE | 2025-02-14 13:07 | A.OFFVIS_ITS ---
Vital Signs 02/14/25 13:08 Height 5 ft 1 in Weight 151 lb 8 oz BMI 28.6 BP 136/70 Blood Pressure Location Rt brachial Position Sitting Pulse 89 Pulse Source Pulse Oximeter Pulse Oximetry (%) 97 Oxygen Delivery Method Room Air Intake Visit Reasons: COPD Allergies Penicillins Adverse Reaction (Severe, Verified 02/14/25 13:13) severe yeast infection HPI HPI COPD: Details: Rebecca is pleasant 69 year old female, current 75+ pack-year smoker, with underlying COPD and hypertension. Unknown severity of COPD as patient declines PFT however likely severe. She reports moderate control with the use of Trelegy and DuoNeb, although does report intermittent wheezing and productive cough with clear sputum. She also notes significant dyspnea while working otherwise denies dyspnea. She denies any visits to urgent care hospitalizations related to respiratory distress since last visit. Unfortunately patient continues to smoke and is not interested in quitting at this time. [facility] Medical History Asthma-COPD overlap syndrome Hypertension Surgical History No pertinent past surgical history Family History Other No family history of coronary artery disease Social History Household Members: Spouse Housing: Other Housing Other:: housing Do you presently have visiting nurse or other home services: No Patient Tobacco Use Status: Current someday Tobacco user Tobacco use type: Cigarette Cigarettes Per Day: 10 Second Hand Smoke Exposure: No service: No Current occupational status: employed Review of Systems Const Denies chills, Denies excessive sweating, Denies fever(s), Denies headache(s) and Denies night sweats Eyes Denies dry eyes, Denies irritation and Denies itchy eyes ENT Reports Normal hearing present and Denies headache(s) Card Denies chest pain, Denies chest pain at rest, Denies chest pain with activity, Denies claudication, Denies leg edema, Reports dyspnea on exertion, Denies orthopnea and Denies paroxysmal nocturnal dyspnea Resp Denies chest congestion, Denies pain on inspiration, Denies pain with cough, Reports dyspnea on exertion, Denies stridor and Reports wheezing Musc Denies myalgias Neuro Reports Normal hearing present and Denies headache(s) Endo Denies excessive sweating Nir/Lymph Denies lymphadenopathy Aller/Immun Denies itchy eyes, Denies seasonal rhinorrhea and Reports wheezing Physical Exam Vital Signs: Last Vital Signs Pulse 89 02/14/25 13:08 BP 136/70 02/14/25 13:08 Pulse Ox 97 02/14/25 13:08 Oxygen Delivery Method Room Air 02/14/25 13:08 BMI result Body Mass Index 28.6 Const General: cooperative, healthy appearing, comfortable, no acute distress, well developed and alert Orientation/consciousness: patient oriented x3 Limitations: no limitations HEENT Head: Yes normal to inspection, Yes normocephalic and Yes atraumatic Ears: hearing grossly normal bilaterally and external ears normal Eyes General: appearance normal, both eyes and all related structures Eyelids: Yes eyelids normal Sclerae: sclerae normal EOM: EOMs intact bilaterally Neck Neck: Yes normal visual inspection and Yes no lymphadenopathy Lymphatic: no lymphadenopathy noted Chest Chest palpation & inspection: normal inspection of the chest Resp Effort & Inspection: normal respiratory effort, able to speak in complete sentences, no cough, no stridor, not tachypneic, no tripod positioning, no use of accessory muscles and prolonged expiratory phase Auscultation: no crackles, no rales, no rhonchi, no wheezes and diminished lung sounds Cardio Jugular venous distension: no JVD Rate: regular rate Rhythm: regular rhythm Skin Other: warm, dry General skin exam: no rashes or lesions noted Neuro General: patient oriented x3 Cranial nerves: Yes Normal hearing present Cognition (Neuro): normal cognition Gait exam (Neuro): Normal gait present Extrem General: Yes normal to inspection, Yes capillary refill normal, Yes no clubbing, cyanosis or edema and Yes no pedal edema Psych Appearance: grossly normal and well kempt Speech and movement: Normal speech and movement present and Clear speech present Affect: normal affect Attitude: cooperative Thought process: Normal thought process present Thought content: Normal thought content present Insight: Good insight present (Psych) Judgement: Good judgement present (Psych) Office Procedures 6 Minute Walk Time:: 13:42 SPO2 % at rest: 98 Pulse at rest: 95 SPO2 % during excercise: 86 Pulse during excercise: 108 SPO2 % after excercise: 93 Pulse after excercise: 112 Distance in yards walked: 175 Sowmya Score: 7 Performance Observations:: Patient walked on level ground unassisted at a moderate pace. After 3 minutes patients O2 saturation dropped to 86% pulse of 108.Stopped and O2 applied at 1L via nasal cannula with O2 saturation recovered to 94% and pulse of 101. Patient completed the walk on 1L maintaining saturation of >93% pulse of 100-110. Patient would benefit from the use of supplemental oxygen. [id number] - 6 Minute Walk Results Reviewed Results Reviewed: [address] [address] [address] Scan Report Signed Patient: Rebecca Eng MR#: [id number] : 1955 Acct:[id number] Age/Sex: 69 / F ADM Date: 01/22/25 Loc: HO.CT Attending Dr: Lizbeth Butt NP Ordering Physician: Lizbeth Butt NP Date of Service: 01/22/25 Procedure(s): CT chest wo IV con Accession Number(s): [id number] cc: Jude Renae MD; Lizbeth Butt NP~ Report Number: [id number]: Total DLP = 140.00 mGy-cm Reason for Exam: R91.8 - Other nonspecific abnormal finding of lung field CLINICAL HISTORY: R91.8 - Other nonspecific abnormal finding of lung field CT chest without contrast Comparison: CT/REG/SR - CT CHEST WO IV CON - 01/31/24 07:18 EDT Findings: Emphysematous changes throughout the lungs are again identified. Unchanged pulmonary nodules. No new pulmonary nodules are identified. Biapical pleural/parenchymal scarring is unchanged. No focal areas of consolidation. No pleural effusion pneumothorax. No enlarged lymph nodes. Dense coronary artery calcification. Clfa-gf-abemtved calcification of the thoracic aorta. No free fluid or free air within the upper abdomen. No acute bony abnormality. IMPRESSION: 1. No acute findings. 2. Emphysematous changes with unchanged pulmonary nodules. 3. Dense coronary artery calcification. Preventative cardiology consultation should be considered. 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 She is aware to call if symptoms become less controlled. She reported significant dyspnea upon moderate exertion and reportedly checked her oxygen saturation at home finding numbers in the 70s to 80s. 6MWT performed today and patient does require supplemental oxygen, 1 L to maintain oxygen saturation greater than 92%. At this time she does not feel she require supplemental oxygen and is refusing a prescription. She is aware of the adverse effects related to hypoxia and will consider in the future. Smoking cessation reviewed, patient already to quit at this time. Reviewed chest CT which revealed emphysematous changes as well as stable multiple 2 mm pulmonary nodules. Will refer to lung screening program for further imaging. There was an incidental finding of severe coronary artery calcifications with recommendations for cardiology however patient would like to further discuss with primary care. Will ensure CT report is sent to PCP. All questions were answered and patient is in agreement of plan. Will follow-up in 3 months or sooner if needed. Orders: Orders AMB 6 minute walk 02/14/25 J44.9 - Chronic obstructive pulmonary disease, unspecified Referrals Lung Cancer Screening Referral F17.210 - Nicotine dependence, cigarettes, uncomplicated Medications: New albuterol sulfate 90 mcg/actuation (Ventolin HFA) 2 puffs inhalation Q4-6H PRN 1 ea 3RF shortness of breath or wheezing Coding Level of Care Code Est Pt Level 4 (40095) Diagnoses COPD (chronic obstructive pulmonary disease) J44.9 Nicotine dependence, cigarettes, uncomplicated F17.210 Multiple pulmonary nodules R91.8 CPT Codes Coding ([id number])
[2025-02-14 13:08] VITALS: BP 136/70; PULSE 89; O2SAT 97; BMI 28.6
[2025-02-14 14:09] VITALS: PULSE 95; O2SAT 98
== END 2025-02-14 14:38 | disposition home or self-care (01) ==
LOC: HO.HPSW 13:01
PROVIDERS: PCP Family Medicine; Visit Provider Nurse Practitioner Family
DX: J44.9 Chronic obstructive pulmonary disease, unspecified (principal); F17.210 Nicotine dependence, cigarettes, uncomplicated; R91.8 Other nonspecific abnormal finding of lung field
CPT/HCPCS: 99214

== ENCOUNTER → 2025-02-14 13:00 | Outpatient (BNVA) | payer MEDICARE, SELFPAY | PROVIDERS: PCP Family Medicine; Visit Provider Nurse Practitioner Family | DX: I10 Essential (primary) hypertension (principal); J44.9 Chronic obstructive pulmonary disease, unspecified; F17.210 Nicotine dependence, cigarettes, uncomplicated; R91.8 Other nonspecific abnormal finding of lung field | CPT/HCPCS: 94618; 99212 ==